=== PATIENT | female | born 1995 | race Caucasian/White ===

== ENCOUNTER 2022-01-18 07:31 | Outpatient (REF) | payer BC, SELFPAY ==
[2022-01-18 12:26] LABS: HBS Num1 1.95 mIU/mL (0-7.99); HBsAGNum1 0.33 S/CO (0.00-0.99); HIV AB/AG Nonreactive (Nonreactive); HIV Num 1 0.07 S/CO (0.00-0.99); Hepatitis B Core Antibody Nonreactive (Nonreactive); Hepatitis B Surface Antigen Negative (Negative); ~Hepatitis B Surface Antibody NONREACTIVE (Nonreactive); ~Hepatitis C Antibody Nonreactive (Nonreactive)
[2022-01-18 12:32] LABS: Syphilis Screen Nonreactive (Nonreactive)
[2022-01-18 13:03] LABS: TSH reflex Free T4 3.47 uIU/mL (0.32-4.0)
[2022-01-18 13:19] LABS: Alanine Aminotransferase 12 U/L (0-31); Albumin Level 4.1 g/dL (3.5-5.0); Alkaline Phosphatase 70 U/L (39-117); Anion Gap 11 (12-20); Aspartate Amino Transferase 15 U/L (5-31); Bilirubin Total 1.1 mg/dL (0.0-1.0); Blood Urea Nitrogen 11 mg/dL (9-16); Calcium 9.1 mg/dL (8.4-10.2); Carbon Dioxide 23 mmol/L (22-29); Chloride 107 mmol/L (96-108); Cholesterol 138 mg/dL; Estimated Glomerular Filt Rate > 60; Free T4 (Free Thyroxine) 1.08 ng/dL (0.71-1.85); Glucose Fasting 93 mg/dL (60-99); HDL Cholesterol 46 mg/dL; LDL Cholesterol Calculated 76 mg/dl; Potassium 3.9 mmol/L (3.3-5.1); Sodium 137 mmol/L (135-145); Thyroid Stimulating Hormone 3.33 uIU/mL (0.32-4.0); Total Protein 6.6 g/dL (6.5-8.0); Triglycerides 84 mg/dL
[2022-01-20 00:22] LABS: Triiodothyronine T3 Total 84 ng/dL (76-181)
== END 2022-01-18 07:32 | disposition home or self-care (01) ==
LOC: HO.WFDLDS 07:31
PROVIDERS: Visit Provider Family Medicine
DX: Z00.00 Encounter for general adult medical examination without abnormal findings (principal); E03.9 Hypothyroidism, unspecified; Z11.3 Encounter for screening for infections with a predominantly sexual mode of transmission
CPT/HCPCS: 36415; 80053; 80061; 84439; 84443; 84480; 86704; 86706; 86780; 86803; 87340; 87389

== ENCOUNTER → 2022-02-16 14:39 | Outpatient (BNVA) | payer BC, SELFPAY | PROVIDERS: PCP Family Medicine; Visit Provider Advanced Practice Midwife | DX: Z30.09 Encounter for other general counseling and advice on contraception (principal) ==

== ENCOUNTER → 2022-03-18 08:13 | Outpatient (BNVA) | payer BC, SELFPAY | PROVIDERS: PCP Family Medicine; Visit Provider Advanced Practice Midwife | DX: Z30.46 Encounter for surveillance of implantable subdermal contraceptive (principal) | CPT/HCPCS: 58300; 58301; 81025; J7307 ==

== ENCOUNTER 2022-06-07 10:48 | Outpatient (REF) | payer BC, SELFPAY ==
[2022-06-07 12:29] LABS: Free T4 (Free Thyroxine) 1.16 ng/dL (0.71-1.85); Thyroid Stimulating Hormone 0.87 uIU/mL (0.32-4.0)
[2022-06-09 01:23] LABS: Thyroid Peroxidase Antibodies 67 IU/mL (<9)
== END 2022-06-07 10:49 | disposition home or self-care (01) ==
LOC: HO.LAB 10:48
PROVIDERS: PCP Family Medicine; Visit Provider Internal Medicine Endocrinology, Diabetes & Metabolism
DX: E03.9 Hypothyroidism, unspecified (principal)
CPT/HCPCS: 36415; 84439; 84443; 84481; 86376

== ENCOUNTER → 2022-06-08 15:20 | Outpatient (BNVA) | payer BC, SELFPAY | PROVIDERS: PCP Family Medicine; Visit Provider Internal Medicine Endocrinology, Diabetes & Metabolism | DX: Z13.89 Encounter for screening for other disorder (principal) ==

== ENCOUNTER 2022-09-01 15:19 | Outpatient (AMB) | payer BC, SELFPAY ==
--- NOTE | 2022-09-01 15:37 | A.OFFPC_ITS ---
Vital Signs 09/01/22 15:38 Height 5 ft 4 in Weight 193 lb BMI 33.1 BP 114/70 Blood Pressure Location Lt brachial Position Sitting Pulse 74 Pulse Source Pulse Oximeter Pulse Oximetry (%) 99 Oxygen Delivery Method Room Air Intake Visit Reasons: f/u weight management Intake Note: Patient is here to discuss weight management. Allergies amoxicillin Allergy (Severe, Verified 09/01/22 15:41) Rash Medication List - Last Reconciled 09/01/22 by Rohan Roberto MD etonogestrel (Nexplanon) subdermal liothyronine 5 mcg PO DAILY 30 days semaglutide (Ozempic) 0.5 mg (0.4 mL) subcut QWEEK Synthroid (levothyroxine) 137 mcg PO DAILY NS Tobacco use date assessed: 09/01/22 Dental Screening Dental Screen Date: 09/01/22 Did you have a dental visit in the last 12 months?: Yes Did you have a dental problem in the last 6 months where you did not have access to dental care?: No Was dental information given to patient?: No HPI f/u weight management HPI Details 27 y/o female presents to f/u weight management. She is currently taking 0.5mg Ozempic for weight management. She denies any issues with this. She continues struggling with weight and has been exercising/dieting. [facility] Medical History Hypothyroid Surgical History No history of previous surgery Family History Father Hypertension Mother Hypertension Irregular heart beat Paternal Grandmother Lung cancer Stroke Paternal Grandfather Cancer Paternal Uncle Heart attack Social History Household Members: Significant Other Household Members Other:: fiance Housing: Apartment Alcohol intake: current Alcohol intake frequency: other Patient Tobacco Use Status: Never used Tobacco e-Cigarette/Vaping Use: Never Used Second Hand Smoke Exposure: No service: No Current occupational status: employed 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 1. Little interest or pleasure in doing things: not at all 2. Feeling down, depressed, or hopeless: not at all 3. Trouble falling or staying asleep, or sleeping too much: not at all 4. Feeling tired or having little energy: not at all 5. Poor appetite or overeating: not at all 6. Feeling bad about yourself - or that you are a failure or have let yourself or your family down: not at all 7. Trouble concentrating on things, such as reading the newspaper or watching television: not at all 8. Moving or speaking so slowly that other people could have noticed. Or the opposite - being so fidgety or restless that you have been moving around a lot more than usual: not at all 9. Thoughts that you would be better off or of hurting yourself in some way: not at all Total score: 0 Source: Developed by Drs. Sohail Alejandro, Arlet Larkin, Aakash Nunes and colleagues, with an educational lolita from [employer]. Thrive Questionnaire I am a: Patient What is your living situation today?: I have a steady place to live Within the past 12 months, did the food you bought not last and you didn't have the money to get more?: Never true Within the past 12 months, did you worry whether your food would run out before you got money to buy more?: Never true Do you have trouble paying for medicines?: No Do you have trouble getting transportation to medical appointments?: No Do you have trouble paying your heating and electricity bill?: No Do you have trouble taking care of your child, family member or friend?: No Do you have trouble with day-to-day activities such as bathing, preparing meals, shopping, managing finances, etc.?: No Are you currently unemployed and looking for a job?: No Are you interested in more education?: No AUDIT C Alcohol Use Questionnaire (AUDIT-C) 1. How often do you have a drink containing alcohol?: 2-3 times a week 2. How many drinks containing alcohol do you have on a typical day when you are drinking?: 1 or 2 3. How often do you have six or more drinks on one occasion?: Never Total Score: 3 JOSE-7 AMB Questionnaire JOSE-7 Date JOSE - 7 assessed: 11/06/21 Feeling nervous, anxious, or on edge: 0 = Not at all Not being able to stop or control worryin = Not at all Worrying too much about different things: 0 = Not at all Trouble relaxin = Not at all Being so restless that it is hard to sit still: 0 = Not at all Becoming easily annoyed or irritable: 0 = Not at all Feeling afraid as if something awful might happen: 0 = Not at all Total JOSE-7 score (0-4 normal; 5-9 mild; 10-14 moderate; 15-21 severe): 0 Source: Developed by Drs. Sohail Alejandro, Arlet Larkin, Aakash Nunes and colleagues, with an educational lolita from [employer]. Review of Systems Const Denies chills, Denies fatigue, Denies fever(s), Denies headache(s) and Denies weakness ENT Denies dizziness and Denies headache(s) Card Denies dyspnea Resp Denies cough, Denies dyspnea, Denies wheezing and Denies other (shortness of breath) Musc Denies numbness and Denies tingling Neuro Denies dizziness, Denies headache(s), Denies numbness, Denies tingling and Denies weakness Psych Denies anxiety and Denies depression Endo Denies fatigue Aller/Immun Denies wheezing Physical exam (Primary Care) Vital Signs: Last Vital Signs Pulse 74 09/01/22 15:38 BP 114/70 09/01/22 15:38 Pulse Ox 99 09/01/22 15:38 Oxygen Delivery Method Room Air 09/01/22 15:38 BMI result Body Mass Index 33.1 Tobacco/Smoking Status: Tobacco use Status Tobacco use date assessed 09/01/22 09/01/22 15:47 Patient Tobacco Use Status Never used Tobacco 09/01/22 15:37 e-Cigarette/Vaping Use Never Used 09/01/22 15:37 PHQ-9: PHQ-9 Score PHQ-9: Total score 0 09/01/22 16:04 Const General: well developed; No acute distress Nutritional Appearance: obese Orientation/consciousness: patient oriented x3 HENMT Head: Yes normocephalic and Yes atraumatic Eyes General: appearance normal, both eyes and all related structures Pupils: Equal, round and reactive pupils present EOM: EOMs intact bilaterally Resp Effort & Inspection: normal respiratory effort Auscultation: clear to auscultation bilaterally Cardio Rate: regular rate Rhythm: regular rhythm Heart sounds: S1 normal heart sound present, S2 normal heart sound present, no gallops, no murmurs and no rubs Neuro General: patient oriented x3 and gait normal Cranial nerves: Yes Equal, round and reactive pupils present Psych Affect: normal affect Assessment and Plan Assessment & Plan (1) Obesity (BMI 30.0-34.9): Code(s): E66.9 - Obesity, unspecified Plan: Patient has ongoing difficulty losing weight. Has tried multiple diets and exercises regularly. Has been using semaglutide but more recently has not had any weight loss; she would like to try increasing this. She has had no adverse effects from this medication. Will increase med and follow-up in 2 months. She will let me know if she has have any problems with this increase. Also, she is followed by endocrinology for hypothyroidism and most recently was found to be euthyroid. Lastly, offered bariatric options and patient would like to see how she does with the increase in medication prior to considering this. Medications: Changed From semaglutide (Ozempic) 0.5 mg (0.4 mL) subcut QWEEK 1.5 mL 1RF To semaglutide 1 mg (0.75 mL) subcut QWEEK 28 days 3 mL 1RF Coding Level of Care Code Est Pt Level 3 (78120) Diagnoses Obesity (BMI 30.0-34.9) E66.9
[2022-09-01 15:38] VITALS: BP 114/70; PULSE 74; O2SAT 99; BMI 33.1
== END 2022-09-01 16:19 | disposition home or self-care (01) ==
PROVIDERS: PCP Family Medicine; Visit Provider Family Medicine
DX: E66.9 Obesity, unspecified (principal); Z68.33 Body mass index [BMI] 33.0-33.9, adult
CPT/HCPCS: 99213

== ENCOUNTER 2022-12-15 09:01 | Outpatient (AMB) | payer BC, SELFPAY ==
[2022-12-15 09:08] VITALS: BP 132/78; PULSE 84; RESP 12; TEMP 36.9; O2SAT 98; BMI 34.2
--- NOTE | 2022-12-15 09:08 | A.OFFPC_ITS ---
Vital Signs 12/15/22 09:08 Height 5 ft 4 in Weight 199 lb 2 oz BMI 34.2 BP 132/78 Blood Pressure Location Lt brachial Position Sitting Respiration 12 Pulse 84 Pulse Source Pulse Oximeter Temp 98.4 F Temp Source Oral Pulse Oximetry (%) 98 Oxygen Delivery Method Room Air Intake Visit Reasons: Urgent Care F/U 12/06/22-Shingles Intake Note: Patient is here for follow up from 12/06/22, she had shingles, she still has rash, itching, burning, and fatigue. Allergies amoxicillin Allergy (Severe, Verified 12/15/22 09:34) Rash Medication List - Last Reconciled 12/15/22 by Guzman Gage CNP etonogestrel (Nexplanon) subdermal liothyronine 5 mcg PO DAILY 30 days semaglutide 1 mg (0.75 mL) subcut QWEEK 28 days Synthroid (levothyroxine) 137 mcg PO DAILY NS Tobacco use date assessed: 12/15/22 HPI HPI Comments History of Present Illness Details 27-year-old female presents for shingles follow-up. She was treated for shingles at an urgent care on 12/06/2022. She was prescribed acyclovir TID x 7 days. She notes that she completed the course of antiviral treatment 4 days ago. However, the rash is still present on right side of her back, ribcage, and abdomen, and it itching and burning. She reports associated fatigue. [facility] Medical History (Updated 12/15/22 @ 10:01 by Guzman Gage CNP) Shingles Hypothyroid Surgical History No history of previous surgery Family History Father Hypertension Mother Hypertension Irregular heart beat Paternal Grandmother Lung cancer Stroke Paternal Grandfather Cancer Paternal Uncle Heart attack Social History Household Members: Significant Other Household Members Other:: fiance Housing: House Alcohol intake: current Alcohol intake frequency: other Patient Tobacco Use Status: Never used Tobacco e-Cigarette/Vaping Use: Never Used Second Hand Smoke Exposure: No service: No Current occupational status: employed 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 Sohail Alejandro, Arlet Larkin, Aakash Nunes and colleagues, with an educational lolita from [employer]. Review of Systems Const Details: Const Denies chills, Reports fatigue, Denies fever(s), Denies headache(s) and Denies weakness ENT Denies dizziness and Denies headache(s) Card Denies chest pain, Denies lightheadedness, Denies dyspnea and Denies other (Palpitations) Resp Denies cough, Denies dyspnea, Denies wheezing and Denies other ( shortness of breath) GI Denies abdominal pain, Denies melena, Denies hematochezia, Denies change in bowel habits, Denies dyspepsia and Denies nausea Denies hematuria and Denies dysuria Musc Denies abnormal gait, Denies myalgias, Denies arthralgias, Denies numbness and Denies tingling Skin/Breast As per HPI Neuro Denies abnormal gait, Denies dizziness, Denies headache(s), Denies memory loss, Denies numbness, Denies Sensory deficit (Neuro), Denies tingling and Denies weakness Psych Denies anxiety, Denies depression, Denies memory loss Endo Denies cold intolerance, Reports fatigue, Denies heat intolerance, Denies polydipsia and Denies polyuria Aller/Immun Denies wheezing Physical exam (Primary Care) Vital Signs: Last Vital Signs Temp 98.4 F 12/15/22 09:08 Pulse 84 12/15/22 09:08 Resp 12 12/15/22 09:08 BP 132/78 12/15/22 09:08 Pulse Ox 98 12/15/22 09:08 Oxygen Delivery Method Room Air 12/15/22 09:08 BMI result Body Mass Index 34.2 Tobacco/Smoking Status: Tobacco use Status Tobacco use date assessed 12/15/22 12/15/22 09:12 Patient Tobacco Use Status Never used Tobacco 12/15/22 09:12 e-Cigarette/Vaping Use Never Used 12/15/22 09:12 Const Other: General: no acute distress and well developed Nutritional Appearance: well nourished Orientation/consciousness: patient oriented x3 [facility] Head: Yes normocephalic and Yes atraumatic Eyes General: appearance normal, both eyes and all related structures Pupils: Equal, round and reactive pupils present EOM: EOMs intact bilaterally Resp Effort & Inspection: normal respiratory effort Auscultation: clear to auscultation bilaterally Cardio Rate: regular rate Rhythm: regular rhythm Heart sounds: S1 normal heart sound present, S2 normal heart sound present, no gallops, no murmurs and no rubs GI Palpation (GI): No Abdominal aortic bruit present, Soft to palpation, nontender, No hepatosplenomegaly present and No Rebound tenderness present Auscultation: normal bowel sounds General: Yes no CVA tenderness Back/Spine/Pelvis Back: no CVA tenderness Cervical Spine: cervical ROM normal and No Cervical spine tenderness Thoracic/Lumbar Spine: thoraco-lumbar ROM normal, No pain with thoraco-lumbar ROM, No thoracic spinal tenderness and No lumbar spinal tenderness Extrem General: Yes normal to inspection, No edema and No calf tenderness Skin General: warm and dry. Normal skin color. Normal skin turgor Rashes: Red, raised, clustered, crusted rash noted to the right side of her back, ribcage, and abdomen. No vesicles noted Trauma: no lacerations or abrasions Wounds: no wounds Nails: normal Neuro General: patient oriented x3, gait normal and no focal neuro deficit Cranial nerves: Yes Equal, round and reactive pupils present Cognition (Neuro): normal cognition Gait exam (Neuro): Normal gait present Sensory Exam: No Sensory deficit (Neuro) Psych Appearance: grossly normal Affect: normal affect Attitude: cooperative Thought process: Normal thought process present Assessment and Plan Assessment & Plan (1) Shingles: Code(s): B02.9 - Zoster without complications Qualifiers: Herpes zoster complications: without complications Qualified Code(s): B02.9 - Zoster without complications Plan: She reports rash on right side of her back, ribcage, and abdomen, and it itching and burning. She reports associated fatigue. She was diagnosed with herpes zoster on 12/06/2022 and was prescribed valacyclovir which she took as prescribed until completed Red, raised, clustered, crusted rash noted to the right side of her back, ribcage, and abdomen. No vesicles noted. Consistent with herpes zoster Gabapentin ordered. Take as prescribed May take ibuprofen 600-800 mg every 6-8 hours as needed for pain or discomfort Will check CBC, TSH, and vitamin-D level for cause of fatigue Follow-up with worsening or new signs and symptoms Verbalized understanding and agreed with treatment plan. (2) Fatigue: Code(s): R53.83 - Other fatigue Qualifiers: Encounter type: initial encounter Plan: As above Orders: Orders Complete Blood Count Auto Diff Today R53.83 - Other fatigue TSH reflex Free T4 Today R53.83 - Other fatigue Comprehensive [place]. Panel Fast Today R53.83 - Other fatigue Vitamin D 25-OH Total Today R53.83 - Other fatigue Medications: New gabapentin 300 mg PO BID 7 days 14 caps 0RF Coding Level of Care Code Est Pt Level 3 (09009) Diagnoses Herpes zoster without complication B02.9 Herpes zoster complications: without complications Fatigue R53.83 Encounter type: initial encounter
== END 2022-12-15 09:51 | disposition home or self-care (01) ==
PROVIDERS: PCP Family Medicine; Visit Provider Nurse Practitioner Family
DX: B02.9 Zoster without complications (principal); R53.83 Other fatigue
CPT/HCPCS: 99213

== ENCOUNTER 2022-12-15 09:52 | Outpatient (REF) | payer BC, SELFPAY ==
[2022-12-15 11:53] LABS: MANUAL DIFF FLAG NO
[2022-12-15 12:08] LABS: Basophils Absolute Auto 0.1 X10*3/uL (0.0-0.2); Basophils Percent Auto 0.5 % (0-2); Eosinophils Absolute Auto 0.4 X10*3/uL (0.0-0.4); Hematocrit 41.9 % (37.0-47.0); Hemoglobin 14.6 g/dl (12.0-16.0); Imm Gran Abs Auto 0.03 X10*3/uL (0.00-0.03); Imm Gran Pct Auto 0.3 % (0.0-0.4); Lymphocytes Absolute Auto 2.7 X10*3/uL (1.2-4.9); Lymphocytes Percent Auto 29.5 % (20-40); Mean Corpuscular HGB Conc 34.8 g/dl (31.0-35.0); Mean Corpuscular Hemoglobin 29.8 pg (27.0-33.0); Mean Corpuscular Volume 85.5 fL (80.0-98.0); Mean Platelet Volume 9.5 fL (9.4-12.3); Monocytes Absolute Auto 0.7 X10*3/uL (0.1-1.2); Monocytes Percent Auto 7.2 % (2-11); Neutrophils Absolute Auto 5.4 x10*3/uL (2.0-8.3); Neutrophils Percent Auto 58.5 % (45-73); Platelet Count 286 X10*3/uL (160-400); Red Cell Distribution Width 12.3 % (11.0-16.0); White Blood Count 9.2 X10*3/uL (4.8-10.8)
[2022-12-15 12:46] LABS: Alanine Aminotransferase 16 U/L (0-31); Albumin Level 4.5 g/dL (3.5-5.0); Alkaline Phosphatase 67 U/L (39-117); Anion Gap 11 (12-20); Aspartate Amino Transferase 19 U/L (5-31); Blood Urea Nitrogen 11 mg/dL (9-16); Carbon Dioxide 25 mmol/L (22-29); Chloride 106 mmol/L (96-108); Estimated Glomerular Filt Rate > 60; Glucose Fasting 81 mg/dL (60-99); Sodium 138 mmol/L (135-145); Total Protein 7.6 g/dL (6.5-8.0)
[2022-12-15 12:48] LABS: TSH reflex Free T4 1.76 uIU/mL (0.32-4.0); Vitamin D 25-OH Total 35.9 ng/mL (>30)
== END 2022-12-15 09:53 | disposition home or self-care (01) ==
LOC: HO.WFDLDS 09:52
PROVIDERS: Visit Provider Nurse Practitioner Family
DX: R53.83 Other fatigue (principal)
CPT/HCPCS: 36415; 80053; 82306; 84443; 85025

== ENCOUNTER 2023-06-06 09:46 | Outpatient (REF) | payer BC, SELFPAY ==
[2023-06-06 12:07] LABS: Free T4 (Free Thyroxine) 1.05 ng/dL (0.71-1.85)
[2023-06-07 07:29] LABS: Triiodothyronine T3 Free 3.1 pg/mL (2.3-4.2)
== END 2023-06-06 09:47 | disposition home or self-care (01) ==
LOC: HO.LAB 09:46
PROVIDERS: PCP Family Medicine; Visit Provider Internal Medicine Endocrinology, Diabetes & Metabolism
DX: E03.9 Hypothyroidism, unspecified (principal)
CPT/HCPCS: 36415; 84439; 84443; 84481

== ENCOUNTER 2023-06-07 10:15 | Outpatient (REF) | payer BC, SELFPAY | END 2023-06-07 10:16 | disposition home or self-care (01) | LOC: HO.LNP 10:15 | PROVIDERS: PCP Family Medicine; Visit Provider Internal Medicine Endocrinology, Diabetes & Metabolism | DX: Z01.419 Encounter for gynecological examination (general) (routine) without abnormal findings (principal) | CPT/HCPCS: 88142 ==

== ENCOUNTER 2023-06-07 10:15 | Outpatient (AMB) | payer BC, SELFPAY ==
[2023-06-07 10:22] VITALS: BP 100/72; PULSE 76; BMI 36.1
--- NOTE | 2023-06-07 10:22 | A.OFFVIS_ITS ---
Intake Vital Signs 06/07/23 10:22 Height 5 ft 4 in Weight 210 lb 1.608 oz BMI 36.1 BP 100/72 Blood Pressure Location Lt brachial Position Sitting Pulse 76 Pulse Source Pulse Oximeter Intake Visit Reasons: f/u hypothyroidism Intake Note: Patient present today for Hypothyroidism follow up visit. Chemist Internship Required: No Accompanied by: Self / Same As Patient Allergies amoxicillin Allergy (Severe, Verified 06/07/23 10:30) Rash HPI HPI Comments History of Present Illness Details 28 YO F with who is seen in consultation at the request of his PCP for Hyothyroidism. First diagnosed with Hypothyroidism 14- 15 yrs ago . saw Endo in [facility] Currently using levothyroxine 137 ug and liothyronine 5 mcg . Denies +fatigue, -weight gain,- cold intolerance, -dry skin, -hair loss, - constipation. There is no hx of hyperlipidemia . Denies obstructive sx of goiter . Denies consuming any kelp or seaweed. Denies taking amiodarone. Denies current or desiring to become in near future.Not completating Menses: IUD Biotin: NO Kelp or seaweed supplements; Family hx of thyroid disease No Correct administration of meds away from food and other meds Y Labs: No plans for [facility] Medical History (Updated 12/15/22 @ 10:01 by Guzman Gage CNP) Shingles Hypothyroid Surgical History No history of previous surgery Family History Father Hypertension Mother Hypertension Irregular heart beat Paternal Grandmother Lung cancer Stroke Paternal Grandfather Cancer Paternal Uncle Heart attack Social History Household Members: Significant Other Household Members Other:: fiance Housing: House Alcohol intake: current Alcohol intake frequency: other Patient Tobacco Use Status: Never used Tobacco e-Cigarette/Vaping Use: Never Used Second Hand Smoke Exposure: No service: No Current occupational status: employed 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 Thyroid gland measure 15 gms . No nodules or tenderness palpated. There is no cervical adenopathy palpated. Lungs CTA. Heart S1, S2 Reg R/R -M/R/G. Abdominal exam benign. Skin exam reveals absence of dryness or thyroid dermopathy or vitiligo. Nail exam reveals absence of thyroid acropachy or oncholysis. Neurologic exam reveals 2+ reflexes . Muscle Strength is 5/5 proximally. There are no tremors in upper extremities. Assessment & Plan Assessment & Plan (1) Hypothyroidism: Code(s): E03.9 - Hypothyroidism, unspecified Plan: This is a 28-year-old white female with a history of hypothyroidism currently replaced on 137 mcg levothyroxine and 5 mcg of Cytomel. She appears to be clinically and biochemically euthyroid Plan is to continue the current regimen. Orders: Orders Free T4 (Free Thyroxine) 6 Months E03.9 - Hypothyroidism, unspecified Thyroid Stimulating Hormone 6 Months E03.9 - Hypothyroidism, unspecified Coding Level of Care Code Est Pt Level 3 (89553) Diagnoses Hypothyroidism E03.9
== END 2023-06-07 10:42 | disposition home or self-care (01) ==
PROVIDERS: PCP Family Medicine; Visit Provider Internal Medicine Endocrinology, Diabetes & Metabolism
DX: E03.9 Hypothyroidism, unspecified (principal)
CPT/HCPCS: 99213

== ENCOUNTER 2023-06-07 10:50 | Outpatient (AMB) | payer BC, SELFPAY ==
--- NOTE | 2023-06-07 10:55 | MHC.OFFVIS ---
Intake Vital Signs 06/07/23 10:56 Height 5 ft 4 in Weight 209 lb BMI 35.9 BP 106/66 Intake Visit Reasons: Annual/ DO NOT RESCHEDULE Retail Marketing Specialist: Retail Marketing Specialist Present (Vesta) Allergies amoxicillin Allergy (Severe, Verified 06/07/23 10:56) Rash HPI HPI Comments History of Present Illness Details She is a premenopausal woman presenting for annual examination. Doing well with no concerns. She tries to eat healthy and stays active with exercise, has difficulty losing weight and took Ozempic in the past until insurance was no longer coverage. Currently has some breakthrough bleeding with the Nexplanon not heavy or to prolonged at this time. Currently is sexually active w/. She denies vaginal itching and irritation. STI screening offered; she declines. Denies family history of breast, ovarian or colon cancer. Last pap smear 2020, negative. [facility] Medical History Shingles Hypothyroid Surgical History No history of previous surgery Family History Father Hypertension Mother Hypertension Irregular heart beat Paternal Grandmother Lung cancer Stroke Paternal Grandfather Cancer Paternal Uncle Heart attack Social History (Updated 06/07/23 @ 11:27 by Katerina Barber CNM) Household Members: Significant Other Household Members Other:: fiance Housing: House Alcohol intake: current Alcohol intake frequency: other Patient Tobacco Use Status: Never used Tobacco e-Cigarette/Vaping Use: Never Used Second Hand Smoke Exposure: No service: No Current occupational status: employed 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, 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 Current occupational exposures/hazards: No Cognitive needs: No Hearing needs: No Vision needs: No Female Reproductive History Menstrual Age of Menarche: 10 control method: implanted (Nexplanon 03/18/2022) Total pregnancies: 0 Review of Systems Const All systems reviewed & are unremarkable except as noted in HPI and below Reports as per HPI Eyes Reports no additional complaints ENT Reports no additional complaints Card Reports no additional complaints Resp Reports no additional complaints GI Reports as per HPI and Reports no additional complaints Reports as per HPI Musc Reports no additional complaints Skin/Breast Reports as per HPI Neuro Reports no additional complaints Psych Reports no additional complaints Endo Reports no additional complaints Aaron/Lymph Reports no additional complaints Aller/Immun Reports no additional complaints Physical Exam Vital Signs: Last Vital Signs BP 106/66 06/07/23 10:56 BMI result Body Mass Index 35.9 Const General: cooperative, healthy appearing, no acute distress, well developed and alert Orientation/consciousness: patient oriented x3 HEENT Head: Yes normal to inspection Eyes General: appearance normal, both eyes and all related structures Neck Neck: Yes normal visual inspection Thyroid: Thyroid normal Chest Chest palpation & inspection: normal inspection of the chest and other (no puckering, dimpling, peau de orange, retraction, discharge, masses) Breast/axilla inspection: normal inspection of the breasts Breast/axilla palpation: normal palpation of the breasts Resp Effort & Inspection: normal respiratory effort GI Inspection: Yes normal to inspection Palpation (GI): Soft to palpation Rectal Exam - Female: deferred General: Yes bladder normal to palpation External Female Exam: normal external appearance and normal appearance of the urethra Speculum Exam - Vagina: normal appearance of the vagina, normal palpation and normal vaginal discharge Speculum Exam - Cervix: normal appearance of the cervix, normal palpation and Other cervical findings present (Bled slightly with Pap) Bimanual exam- vagina & uterus: normal bimanual exam, normal palpation, uterine size normal, bladder normal to palpation, normal palpation and non-tender Bimanual Exam- Adnexa, other: no masses Skin General skin exam: no rashes or lesions noted Rashes: no rashes Neuro General: patient oriented x3 Cognition (Neuro): normal cognition Extrem General: Yes normal to inspection Psych Attitude: cooperative Thought process: Normal thought process present Assessment & Plan Assessment & Plan (1) Encounter for well woman exam with routine gynecological exam: Code(s): Z01.419 - Encounter for gynecological examination (general) (routine) without abnormal findings Plan Discussed: Current recommendations for pap smears per ASCCP guidelines. Pap obtained today. Breast awareness and periodic breast exams. Maintain a healthy lifestyle including a well balanced diet and routine exercise. Observe bleeding pattern and report any heavy prolonged cycles for options of care. Patient verbalizes understanding and agrees to the plan of care. She was given opportunity to ask questions and all questions were answered to the best of my ability. RTO in one year for annual route delivery clerk examination. This note is constructed using voice recognition software. While every effort has been made to ensure accuracy, water treatment plant operator errors may have been included. Coding Level of Care Code Est Pt Prev Care 18-39y(65690) Diagnoses Encounter for well woman exam with routine gynecological exam Z01.419
[2023-06-07 10:56] VITALS: BP 106/66; BMI 35.9
== END 2023-06-07 11:32 | disposition home or self-care (01) ==
PROVIDERS: PCP Family Medicine; Visit Provider Advanced Practice Midwife
DX: Z01.419 Encounter for gynecological examination (general) (routine) without abnormal findings (principal)
CPT/HCPCS: 99395

== ENCOUNTER 2023-08-26 07:59 | Outpatient (AMB) | payer BC, SELFPAY ==
--- NOTE | 2023-08-26 08:08 | MHC.PC.OV ---
Vital Signs 08/26/23 08:12 Height 5 ft 4 in Weight 210 lb 8 oz BMI 36.1 BP 98/62 Blood Pressure Location Rt brachial Position Sitting Respiration 12 Pulse 69 Pulse Source Pulse Oximeter Temp 98.2 F Temp Source Oral Pulse Oximetry (%) 97 Oxygen Delivery Method Room Air Intake Visit Reasons: Annual Intake Note: Physical Is last menstrual period known: No (Started on 08/22/2023) Allergies amoxicillin Allergy (Severe, Verified 08/26/23 08:16) Rash Medication List - Last Reconciled 08/26/23 by Guzman Gage CNP etonogestrel (Nexplanon) subdermal liothyronine 5 mcg PO DAILY 30 days Synthroid (levothyroxine) 137 mcg PO DAILY NS Tobacco use date assessed: 08/26/23 Dental Screening Dental Screen Date: 08/26/23 Did you have a dental visit in the last 12 months?: Yes Did you have a dental problem in the last 6 months where you did not have access to dental care?: No Was dental information given to patient?: Patient has dentist HPI HPI Comments History of Present Illness Details 28-year-old female presents for an extended physical exam She is a patient of Dr. Roberto. Her last office visit was on 09/01/2022 She has past medical history significant for hypothyroidism and obesity She is currently on levothyroxine 137 mcg, liothyronine 5 mcg, and nexplanon. She admits to taking her medications as prescribed without adverse reactions She admits to making healthy dietary choices and sleeping well. She started physical exercise recently She stop taking Ozempic after her health plan stopped covering the medication. She is willing to be referred to a dietitian She offers no complaints and denies acute symptoms at this time Last Pap smear was on 05/2023: negative result COUNT INCLUDES THE [facility] Medical History Shingles Hypothyroid Surgical History No history of previous surgery Family History Father Hypertension Mother Hypertension Irregular heart beat Paternal Grandmother Lung cancer Stroke Paternal Grandfather Cancer Paternal Uncle Heart attack Social History (Updated 06/07/23 @ 11:27 by Katerina Barber CNM) Household Members: Significant Other Household Members Other:: fiance Housing: House Alcohol intake: current Alcohol intake frequency: other Patient Tobacco Use Status: Never used Tobacco e-Cigarette/Vaping Use: Never Used Second Hand Smoke Exposure: No service: No Current occupational status: employed 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 1. Little interest or pleasure in doing things: not at all 2. Feeling down, depressed, or hopeless: not at all 3. Trouble falling or staying asleep, or sleeping too much: not at all 4. Feeling tired or having little energy: not at all 5. Poor appetite or overeating: not at all 6. Feeling bad about yourself - or that you are a failure or have let yourself or your family down: not at all 7. Trouble concentrating on things, such as reading the newspaper or watching television: several days 8. Moving or speaking so slowly that other people could have noticed. Or the opposite - being so fidgety or restless that you have been moving around a lot more than usual: not at all 9. Thoughts that you would be better off or of hurting yourself in some way: not at all Total score: 1 Depression Screening Interpretation: Negative Depression Screening Done: Yes 25306 - PHQ-9 Billing: Yes Source: Developed by Drs. Sohail Alejandro, Arlet Larkin, Aakash Nunes and colleagues, with an educational lolita from [employer]. Thrive Questionnaire Date Thrive assessed: 08/26/23 I am a: Patient What is your living situation today?: I have a steady place to live Within the past 12 months, did the food you bought not last and you didn't have the money to get more?: Never true Within the past 12 months, did you worry whether your food would run out before you got money to buy more?: Never true Do you have trouble paying for medicines?: No Do you have trouble getting transportation to medical appointments?: No Do you have trouble paying your heating and electricity bill?: No Do you have trouble taking care of your child, family member or friend?: No Do you have trouble with day-to-day activities such as bathing, preparing meals, shopping, managing finances, etc.?: No Are you currently unemployed and looking for a job?: No Are you interested in more education?: No Please select the resources that you would like help with: None Currently or been in a relationship where the following occur: No concerns reported THRIVE Score: 0 AUDIT C Alcohol Use Questionnaire (AUDIT-C) 1. How often do you have a drink containing alcohol?: 2-4 times a month 2. How many drinks containing alcohol do you have on a typical day when you are drinking?: 3 or 4 3. How often do you have six or more drinks on one occasion?: Less than monthly Total Score: 4 JOSE-7 AMB Questionnaire JOSE-7 Date JOSE - 7 assessed: 11/06/21 Feeling nervous, anxious, or on edge: 2 = More than half the days Not being able to stop or control worryin = Not at all Worrying too much about different things: 1 = Several days Trouble relaxin = Not at all Being so restless that it is hard to sit still: 0 = Not at all Becoming easily annoyed or irritable: 2 = More than half the days Feeling afraid as if something awful might happen: 0 = Not at all Total JOSE-7 score (0-4 normal; 5-9 mild; 10-14 moderate; 15-21 severe): 5 Source: Developed by Drs. Sohail Alejandro, Arlet Larkin, Aakash Nunes and colleagues, with an educational lolita from [employer]. JOSE-7 Assessment Billing JOSE-7 Assessment Tool: JOSE-7 Assessment 29829 Review of Systems Const Details: Denies chills, Denies fatigue, Denies fever(s), Denies headache(s) and Denies weakness HEENT Denies change in vision, Denies dizziness, Denies headache(s), Denies hearing loss, Denies nasal congestion, Denies sinus pain, Denies sinus pressure and Denies sore throat Card Denies chest pain, Denies lightheadedness, Denies dyspnea and Denies other (palpitations) Resp Denies cough, Denies dyspnea and Denies wheezing GI Denies abdominal pain, Denies melena, Denies hematochezia, Denies change in bowel habits, Denies dyspepsia and Denies nausea Denies hematuria and Denies dysuria Musc Denies abnormal gait, Denies myalgias, Denies arthralgias, Denies numbness and Denies tingling Skin/Breast Denies rash, Denies unusual bruising and Denies wounds Neuro Denies abnormal gait, Denies dizziness, Denies headache(s), Denies memory loss, Denies numbness, Denies Sensory deficit (Neuro), Denies tingling and Denies weakness Psych Denies anxiety, Denies depression and Denies memory loss Endo Denies cold intolerance, Denies fatigue, Denies heat intolerance, Denies polydipsia and Denies polyuria Aaron/Lymph Denies easy bleeding and Denies easy bruising Aller/Immun Denies wheezing Physical exam (Primary Care) Tobacco/Smoking Status: Tobacco use Status Tobacco use date assessed 12/15/22 12/15/22 09:12 Patient Tobacco Use Status Never used Tobacco 06/07/23 11:27 e-Cigarette/Vaping Use Never Used 06/07/23 11:27 Depression Screening Interpretation: Negative Currently or been in a relationship where the following occur: No concerns reported Const Other: General: no acute distress, well developed, alert and awake Nutritional Appearance: well nourished Orientation/consciousness: patient oriented x3 HENMT Head: Yes normocephalic and Yes atraumatic Ears: hearing grossly normal bilaterally and TM's normal bilaterally General nose exam: Normal external nose present and Normal nares present Mouth: Normal oral and palatal mucosa present and moist mucous membranes Teeth and gingiva: dentition normal Throat: Yes oropharynx normal Eyes Pupils: Equal, round and reactive pupils present and Pupil accommodation reflex normal EOM: EOMs intact bilaterally Neck Neck: Yes normal visual inspection, Yes no lymphadenopathy and Yes trachea midline Thyroid: Thyroid normal Carotids: no bruits Lymphatic: no lymphadenopathy noted Chest Chest palpation & inspection: normal inspection of the chest Resp Effort & Inspection: normal respiratory effort Auscultation: clear to auscultation bilaterally Cardio Rate: regular rate Rhythm: regular rhythm Heart sounds: S1 normal heart sound present, S2 normal heart sound present, no gallops, no murmurs and no rubs Bruits: no abdominal aortic bruits and no carotid bruits GI Palpation (GI): No Abdominal aortic bruit present, Soft to palpation, nontender, No hepatosplenomegaly present and No Rebound tenderness present Auscultation: normal bowel sounds General: Yes no CVA tenderness Back/Spine/Pelvis Back: no CVA tenderness Cervical Spine: cervical ROM normal and No Cervical spine tenderness Thoracic/Lumbar Spine: thoraco-lumbar ROM normal, No pain with thoraco-lumbar ROM, No thoracic spinal tenderness and No lumbar spinal tenderness Skin General: warm and dry. Normal skin color. Normal skin turgor Lesions: no lesions Rashes: no rashes Trauma: no lacerations or abrasions Wounds: no wounds Nails: normal Neuro General: patient oriented x3, gait normal and CN's II-XI intact bilaterally Cranial nerves: Yes Equal, round and reactive pupils present Cognition (Neuro): normal cognition Gait exam (Neuro): Normal gait present Motor exam (neuro): 5/5 motor strength present throughout Sensory Exam: No Sensory deficit (Neuro) Deep tendon reflexes (DTR's): Right patellar reflex intensity grade: 2+ and Left patellar reflex intensity grade: 2+ Extrem General: Yes normal to inspection, No edema and No calf tenderness Psych Appearance: grossly normal Affect: normal affect Attitude: cooperative Thought process: Normal thought process present Assessment and Plan Assessment & Plan (1) Normal physical examination, routine: Code(s): Z00.00 - Encounter for general adult medical examination without abnormal findings Plan: No significant physical restrictions or limitations noted Continue current treatment regimen Healthy diet and routine exercise encouraged Follow-up with endocrinology as planned Advised to get fasting lab work done. Will review results and make changes as needed Follow-up with PCP in a year from today for an extended physical exam or sooner with symptoms or concerns Verbalized understanding and agreed with treatment plan (2) Obesity (BMI 30-39.9): Code(s): E66.9 - Obesity, unspecified Plan: She currently weighs 210 lb, BMI is 36.1 Healthy diet and routine exercise encouraged [place] [facility] [place] Follow-up with symptoms or concerns Verbalized understanding and agreed with the plan (3) Hypothyroidism: Code(s): E03.9 - Hypothyroidism, unspecified Plan: Recent TSH, free T3/T4 were normal Continue current treatment regimen Follow-up with endocrinology as planned (4) Laboratory exam ordered as part of routine general medical examination: Code(s): Z00.00 - Encounter for general adult medical examination without abnormal findings Plan: Fasting labs ordered as part of a complete physical exam. Advised to fast for at least 10 hours before getting labs drawn. May drink water Verbalized understanding and agreed with treatment plan. Orders: Orders Lipid Panel Today Z00.00 - Encounter for general adult medical examination without abnormal findings UA CC w/rflx Micro + Cult Today Z00.00 - Encounter for general adult medical examination without abnormal findings Referrals Nutrition/Dietitian Referral E66.9 - Obesity, unspecified Coding Level of Care Code Est Pt Prev Care 18-39y([id number]) Diagnoses Normal physical examination, routine Z00.00 Obesity (BMI 30-39.9) E66.9 Hypothyroidism E03.9 Laboratory exam ordered as part of routine general medical examination Z00.00 Additional Codes JOSE-7 Assessment Billing - JOSE-7 Assessment Tool: JOSE-7 Assessment [id number] ([id number])
[2023-08-26 08:12] VITALS: BP 98/62; PULSE 69; RESP 12; TEMP 36.8; O2SAT 97; BMI 36.1
== END 2023-08-26 08:29 | disposition home or self-care (01) ==
PROVIDERS: PCP Family Medicine; Visit Provider Nurse Practitioner Family
DX: Z00.00 Encounter for general adult medical examination without abnormal findings (principal); E66.9 Obesity, unspecified; E03.9 Hypothyroidism, unspecified; Z68.36 Body mass index [BMI] 36.0-36.9, adult
CPT/HCPCS: 99395

== ENCOUNTER 2023-08-26 08:32 | Outpatient (REF) | payer BC, SELFPAY ==
[2023-08-26 11:30] LABS: Appearance Urine Clear; Color Urine Yellow; Glucose Urine UA Negative (Negative); Leukocyte Esterase Urine Negative (Negative); Nitrite Urine Negative (Negative); PH 6.5 (5.0-9.0); Specific Gravity - Urine 1.015 (1.005-1.025); UMIC TRIGGER UACC YES; Urine Blood Trace (Negative); Urine Ketones Negative (Negative); Urine Protein Negative (Neg-Trace)
[2023-08-26 11:35] LABS: Bacteria Urine None Seen (None Seen); Hyaline Casts Urine 0-2 /LPF (0-2); RBC Urine 0-2 /HPF (0-2); Squamous Epithelial Cell Urine 0-2 /HPF (0-2); WBC Urine 0-5 /HPF (0-5)
[2023-08-26 11:41] LABS: Cholesterol 154 mg/dL (<200); HDL Cholesterol 46 mg/dL (>40); LDL Cholesterol Calculated 95 mg/dL (<100); Triglycerides 68 mg/dL (<150)
== END 2023-08-26 08:33 | disposition home or self-care (01) ==
LOC: HO.WFDLDS 08:32
PROVIDERS: Visit Provider Nurse Practitioner Family
DX: Z00.00 Encounter for general adult medical examination without abnormal findings (principal)
CPT/HCPCS: 36415; 80061; 81001

== ENCOUNTER 2023-12-07 15:46 | Outpatient (AMB) | payer BC, SELFPAY ==
[2023-12-07 15:47] VITALS: BP 110/72; PULSE 87; BMI 36.1
--- NOTE | 2023-12-07 15:47 | A.OFFVIS_ITS ---
Vital Signs 12/07/23 15:47 Height 5 ft 4 in Weight 210 lb 1.608 oz BMI 36.1 BP 110/72 Blood Pressure Location Lt brachial Position Sitting Pulse 87 Pulse Source Pulse Oximeter Intake Visit Reasons: f/u hypothyroidism-conf Intake Note: Patient present today for Hypothyroidism follow up visit. Rn Dermatology Required: No Accompanied by: Self / Same As Patient Allergies amoxicillin Allergy (Severe, Verified 12/07/23 15:50) Rash Medication List - Last Reconciled 12/07/23 by Sohail Cooper MD etonogestrel (Nexplanon) subdermal liothyronine 5 mcg PO DAILY 30 days Synthroid (levothyroxine) 137 mcg PO DAILY NS HPI Comments Details: 28 YO F with who is seen in consultation at the request of his PCP for Hyothyroidism. First diagnosed with Hypothyroidism 14- 15 yrs ago . saw Endo in [facility] Currently using levothyroxine 137 ug and liothyronine 5 mcg . Denies +fatigue, -weight gain,- cold intolerance, -dry skin, -hair loss, - constipation. There is no hx of hyperlipidemia . Denies obstructive sx of goiter . Denies consuming any kelp or seaweed. Denies taking amiodarone. Denies current or desiring to become in near future.Not completating Menses: IUD Biotin: NO Kelp or seaweed supplements; Family hx of thyroid disease No Correct administration of meds away from food and other meds Y Labs: No plans for PFSH Medical History Shingles Hypothyroid Surgical History No history of previous surgery Family History Father Hypertension Mother Hypertension Irregular heart beat Paternal Grandmother Lung cancer Stroke Paternal Grandfather Cancer Paternal Uncle Heart attack Social History (Updated 06/07/23 @ 11:27 by Katerina Barber CNM) Household Members: Significant Other Household Members Other:: fiance Housing: House Alcohol intake: current Alcohol intake frequency: other Patient Tobacco Use Status: Never used Tobacco e-Cigarette/Vaping Use: Never Used Second Hand Smoke Exposure: No service: No Current occupational status: employed 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 Thyroid gland measure 15 gms . No nodules or tenderness palpated. There is no cervical adenopathy palpated. Lungs CTA. Heart S1, S2 Reg R/R -M/R/G. Abdominal exam benign. Skin exam reveals absence of dryness or thyroid dermopathy or vitiligo. Nail exam reveals absence of thyroid acropachy or oncholysis. Neurologic exam reveals 2+ reflexes . Muscle Strength is 5/5 proximally. There are no tremors in upper extremities. Assessment & Plan Assessment & Plan (1) Hypothyroidism: Code(s): E03.9 - Hypothyroidism, unspecified Category: Medical Plan: This is a 28-year-old white female with a history of hypothyroidism currently replaced on 137 mcg levothyroxine and 5 mcg of Cytomel. She appears to be clinically euthyroid Plan is to check TSH, free T4 and free T3 and adjust regimen accordingly. Patient was Once again not to get on a T3 and to stop the T3 prior to planning Coding Level of Care Code Est Pt Level 3 (07768) Diagnoses Hypothyroidism E03.9
== END 2023-12-07 15:59 | disposition home or self-care (01) ==
PROVIDERS: PCP Family Medicine; Visit Provider Internal Medicine Endocrinology, Diabetes & Metabolism
DX: E03.9 Hypothyroidism, unspecified (principal)
CPT/HCPCS: 99213

== ENCOUNTER → 2023-12-07 15:46 | Outpatient (BNVA) | payer BC, SELFPAY | PROVIDERS: PCP Family Medicine; Visit Provider Internal Medicine Endocrinology, Diabetes & Metabolism ==

== ENCOUNTER 2023-12-09 08:05 | Outpatient (REF) | payer BC, SELFPAY ==
[2023-12-09 12:57] LABS: Free T4 (Free Thyroxine) 1.21 ng/dL (0.71-1.85)
== END 2023-12-09 08:06 | disposition home or self-care (01) ==
LOC: HO.WFDLDS 08:05
PROVIDERS: Visit Provider Internal Medicine Endocrinology, Diabetes & Metabolism
DX: E03.9 Hypothyroidism, unspecified (principal)
CPT/HCPCS: 36415; 84439; 84443

== ENCOUNTER 2024-02-14 08:19 | Outpatient (AMB) | payer BC, SELFPAY ==
--- NOTE | 2024-02-14 08:49 | A.OFFPC_ITS ---
Vital Signs 02/14/24 08:51 Height 5 ft 4 in Weight 211 lb 8 oz BMI 36.3 BP 120/70 Blood Pressure Location Rt brachial Position Sitting Respiration 16 Pulse 84 Pulse Source Pulse Oximeter Temp 98.1 F Temp Source Oral Pulse Oximetry (%) 97 Oxygen Delivery Method Room Air Intake Visit Reasons: Difficulty?concentrating Intake Note: Difficulty?concentrating?and?pt would like to talk about adhd medication options and symptoms she has been having to rule out adhd or anxiety Allergies amoxicillin Allergy (Severe, Verified 02/14/24 08:50) Rash Tobacco use date assessed: 08/26/23 Dental Screening Dental Screen Date: 08/26/23 HPI Difficulty?concentrating HPI Details Patient?says?that?she?has?been?experiencing?worsening?difficulty?concentrating?a t?work?and?at?home.??Difficulty?staying?on?task. He?notes?mild?anxiety?but?is?not?sure?who?her?anx iety?is?causing?difficulty?with?concentrating?would?you?of?way?around. She?notes?that?she?had?an?IEP?as?a?child?but?was?never?diagnosed?with?ADD/ADHD?t brenna?she?is?wondering?if?this?is?the?underlying?cause. 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 1. Little interest or pleasure in doing things: not at all 2. Feeling down, depressed, or hopeless: not at all 3. Trouble falling or staying asleep, or sleeping too much: several days 4. Feeling tired or having little energy: several days 5. Poor appetite or overeating: not at all 6. Feeling bad about yourself - or that you are a failure or have let yourself or your family down: not at all 7. Trouble concentrating on things, such as reading the newspaper or watching t elevision: several days 8. Moving or speaking so slowly that other people could have noticed. Or the opposite - being so fidgety or restless that you have been moving around a lot more than usual: not at all 9. Thoughts that you would be better off or of hurting yourself in some way: not at all Total score: 3 Source: Developed by Drs. Sohail Alejandro, Arlet Larkin, Aakash Nunes and colleagues, with an educational lolita from [employer]. Thrive Questionnaire Date Thrive assessed: 02/14/24 I am a: Patient What is your living situation today?: I have a steady place to live Within the past 12 months, did the food you bought not last and you didn't have the money to get more?: Never true Within the past 12 months, did you worry whether your food would run out before you got money to buy more?: Never true Do you have trouble paying for medicines?: No Do you have trouble getting transportation to medical appointments?: No Do you have trouble paying your heating and electricity bill?: No Do you have trouble taking care of your child, family member or friend?: No Do you have trouble with day-to-day activities such as bathing, preparing meals, shopping, managing finances, etc.?: No Are you currently unemployed and looking for a job?: No Are you interested in more education?: No Please select the resources that you would like help with: None Currently or been in a relationship where the following occur: No concerns reported THRIVE Score: 0 AUDIT C Alcohol Use Questionnaire (AUDIT-C) 1. How often do you have a drink containing alcohol?: 2-4 times a month 2. How many drinks containing alcohol do you have on a typical day when you are drinking?: 1 or 2 3. How often do you have six or more drinks on one occasion?: Never Total Score: 2 JOSE-7 AMB Questionnaire JOSE-7 Date JOSE - 7 assessed: 02/14/24 Feeling nervous, anxious, or on edge: 1 = Several days Not being able to stop or control worryin = Several days Worrying too much about different things: 1 = Several days Trouble relaxin = Not at all Being so restless that it is hard to sit still: 0 = Not at all Becoming easily annoyed or irritable: 0 = Not at all Feeling afraid as if something awful might happen: 0 = Not at all Total JOSE-7 score (0-4 normal; 5-9 mild; 10-14 moderate; 15-21 severe): 3 Source: Developed by Drs. Sohail Alejandro, Arlet Larkin, Aakash Nunes and colleagues, with an educational lolita from [employer]. Review of Systems Const Denies chills, Denies fatigue, Denies fever(s), Denies headache(s) and Denies weakness ENT Denies dizziness and Denies headache(s) Card Denies chest pain, Denies lightheadedness, Denies dyspnea and Denies other (Palpitations) Resp Denies cough, Denies dyspnea, Denies wheezing and Denies other ( shortness of breath) Musc Denies numbness and Denies tingling Neuro Denies dizziness, Denies headache(s), Denies numbness, Denies tingling, Denies paresthesias and Denies weakness Psych Details: Difficulty?concentrating Reports anxiety (mild anxiety) and Denies depression Endo Denies fatigue Aller/Immun Denies wheezing Physical exam (Primary Care) Vital Signs: Last Vital Signs Temp 98.1 F 02/14/24 08:51 Pulse 84 02/14/24 08:51 Resp 16 02/14/24 08:51 BP 120/70 02/14/24 08:51 Pulse Ox 97 02/14/24 08:51 Oxygen Delivery Method Room Air 02/14/24 08:51 BMI result Body Mass Index 36.3 Tobacco/Smoking Status: Tobacco use Status Tobacco use date assessed 08/26/23 02/14/24 08:57 Patient Tobacco Use Status Never used Tobacco 02/14/24 08:57 e-Cigarette/Vaping Use Never Used 02/14/24 08:57 PHQ-9: PHQ-9 Score PHQ-9: Total score 3 02/14/24 08:57 Thrive Assessment: Date of Thrive Assessment Date Thrive assessed 02/14/24 02/14/24 08:57 Currently or been in a relationship where the following occur: No concerns reported Const General: no acute distress and well developed Nutritional Appearance: well nourished Orientation/consciousness: patient oriented x3 HENMT Head: Yes normocephalic and Yes atraumatic Eyes General: appearance normal, both eyes and all related structures Pupils: Equal, round and reactive pupils present EOM: EOMs intact bilaterally Resp Effort & Inspection: normal respiratory effort Auscultation: clear to auscultation bilaterally Cardio Rate: regular rate Rhythm: regular rhythm Heart sounds: S1 normal heart sound present, S2 normal heart sound present, no gallops, no murmurs and no rubs Neuro General: patient oriented x3 and gait normal Cranial nerves: Yes Equal, round and reactive pupils present Psych Affect: normal affect Coding Level of Care Code Est Pt Level 3 (33054) Diagnoses Difficulty concentrating R41.840 Assessment & Plan Assessment & Plan (1) Difficulty concentrating: Code(s): R41.840 - Attention and concentration deficit Category: Medical Plan: Difficulty?concentrating?and?focusing?on?her?work. Patient?says?she?had?an?IEP?as?a?student?but?no?prior?diagnosis?of?ADD/ADHD Will?refer?her?for testing Meantime,?will?trial?bupropion Orders: Orders Lipid Panel Today Z00.00 - Encounter for general adult medical examination without abnormal findings Free T4 (Free Thyroxine) Today E03.9 - Hypothyroidism, unspecified Thyroid Stimulating Hormone Today E03.9 - Hypothyroidism, unspecified Comprehensive [place]. Panel Fast Today Z00.00 - Encounter for general adult medical examination without abnormal findings Complete Blood Count Auto Diff Today Z00.00 - Encounter for general adult medical examination without abnormal findings Microalbumin, Random (w Creat) Today I10 - Essential (primary) hypertension UA and rflx microscopic Today Z00.00 - Encounter for general adult medical examination without abnormal findings Triiodothyronine T3 Total Today E03.9 - Hypothyroidism, unspecified Medications: New bupropion HCl 75 mg PO BID 30 days 60 tabs 1RF
[2024-02-14 08:51] VITALS: BP 120/70; PULSE 84; RESP 16; TEMP 36.7; O2SAT 97; BMI 36.3
== END 2024-02-14 09:11 | disposition home or self-care (01) ==
PROVIDERS: PCP Family Medicine; Visit Provider Family Medicine
DX: R41.840 Attention and concentration deficit (principal)

== ENCOUNTER 2024-02-14 09:32 | Outpatient (REF) | payer BC, SELFPAY ==
[2024-02-14 11:13] LABS: MANUAL DIFF FLAG NO
[2024-02-14 11:38] LABS: Basophils Absolute Auto 0.1 X10*3/uL (0.0-0.2); Basophils Percent Auto 0.7 % (0-2); Eosinophils Absolute Auto 0.3 X10*3/uL (0.0-0.4); Eosinophils Percent Auto 3.8 % (0-4); Hemoglobin 14.5 g/dl (12.0-16.0); Imm Gran Abs Auto 0.02 X10*3/uL (0.00-0.03); Imm Gran Pct Auto 0.3 % (0.0-0.4); Lymphocytes Absolute Auto 2.1 X10*3/uL (1.2-4.9); Lymphocytes Percent Auto 27.7 % (20-40); Mean Corpuscular HGB Conc 34.5 g/dl (31.0-35.0); Mean Corpuscular Hemoglobin 29.4 pg (27.0-33.0); Mean Platelet Volume 9.7 fL (9.4-12.3); Monocytes Absolute Auto 0.6 X10*3/uL (0.1-1.2); Monocytes Percent Auto 7.8 % (2-11); Neutrophils Absolute Auto 4.6 x10*3/uL (2.0-8.3); Neutrophils Percent Auto 59.7 % (45-73); Platelet Count 321 X10*3/uL (160-400); Red Blood Count 4.94 X10*6/uL (4.20-5.50); Red Cell Distribution Width 12.5 % (11.0-16.0); White Blood Count 7.7 X10*3/uL (4.8-10.8)
[2024-02-14 12:06] LABS: Alanine Aminotransferase 26 U/L (0-31); Albumin Level 4.4 g/dL (3.5-5.0); Alkaline Phosphatase 68 U/L (39-117); Anion Gap 12 (12-20); Aspartate Amino Transferase 31 U/L (5-31); Bilirubin Total 0.9 mg/dL (0.0-1.0); Blood Urea Nitrogen 12 mg/dL (9-16); Calcium 9.5 mg/dL (8.4-10.2); Carbon Dioxide 26 mmol/L (22-29); Chloride 107 mmol/L (96-108); Cholesterol 151 mg/dL (<200); Estimated Glomerular Filt Rate > 60; Glucose Fasting 93 mg/dL (60-99); HDL Cholesterol 43 mg/dL (>40); LDL Cholesterol Calculated 93 mg/dL (<100); Potassium 3.9 mmol/L (3.3-5.1); Sodium 141 mmol/L (135-145); Total Protein 7.3 g/dL (6.5-8.0); Triglycerides 75 mg/dL (<150)
[2024-02-14 12:55] LABS: Free T4 (Free Thyroxine) 1.26 ng/dL (0.71-1.85); Thyroid Stimulating Hormone 1.86 uIU/mL (0.32-4.0)
[2024-02-15 11:04] LABS: Triiodothyronine T3 Total 117 ng/dL (76-181)
== END 2024-02-14 09:33 | disposition home or self-care (01) ==
LOC: HO.WFDLDS 09:32
PROVIDERS: Visit Provider Family Medicine
DX: Z00.00 Encounter for general adult medical examination without abnormal findings (principal); E03.9 Hypothyroidism, unspecified
CPT/HCPCS: 36415; 80053; 80061; 84439; 84443; 84480; 85025

== ENCOUNTER 2024-03-20 15:33 | Outpatient (AMB) | payer BC, SELFPAY ==
--- NOTE | 2024-03-20 15:59 | MHC.PC.OV ---
Vital Signs 03/20/24 16:03 Height 5 ft 4 in Weight 212 lb 6 oz BMI 36.5 BP 110/60 Blood Pressure Location Rt brachial Position Sitting Respiration 16 Pulse 81 Pulse Source Pulse Oximeter Temp 98.8 F Temp Source Oral Pulse Oximetry (%) 98 Oxygen Delivery Method Room Air Intake Visit Reasons: f/u on meds Intake Note: bupropion f/u pt states she felt the difference in the begining of taking medication and now she is going back to how she felt before medication initiation. Allergies amoxicillin Allergy (Severe, Verified 03/20/24 16:01) Rash Medication List - Last Reconciled 03/20/24 by Rohan Roberto MD bupropion HCl 100 mg PO BID 30 days etonogestrel (Nexplanon) subdermal liothyronine 5 mcg PO DAILY 30 days Synthroid (levothyroxine) 137 mcg PO DAILY NS Tobacco use date assessed: 08/26/23 Dental Screening Dental Screen Date: 08/26/23 HPI f/u on meds HPI Details 29 y/o female presents to f/u difficulty concentrating. Had started her on buproprion and referred her for evaluation for ADD/ADHD. Notes buproprion had initially helped with focus but does not feel much at her current dose now. She notes she has been sleeping well. HPI Comments History of Present Illness Details Documentation assistance for Rohan Roberto MD, was provided by Gene Fink,? Planning Associate on 03/20/2024 at 4:16 PM EST. I, Dr. Roberto, have read, observed, and verified documentation. ?? 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, 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 Current occupational exposures/hazards: No Cognitive needs: No Hearing needs: No Vision needs: No Female Reproductive History Menstrual Age of Menarche: 10 Questionnaire Thrive Questionnaire Date Thrive assessed: 02/14/24 I am a: Patient What is your living situation today?: I have a steady place to live Within the past 12 months, did the food you bought not last and you didn't have the money to get more?: Never true Within the past 12 months, did you worry whether your food would run out before you got money to buy more?: Never true Do you have trouble paying for medicines?: No Do you have trouble getting transportation to medical appointments?: No Do you have trouble paying your heating and electricity bill?: No Do you have trouble taking care of your child, family member or friend?: No Do you have trouble with day-to-day activities such as bathing, preparing meals, shopping, managing finances, etc.?: No Are you currently unemployed and looking for a job?: No Are you interested in more education?: No Please select the resources that you would like help with: None Currently or been in a relationship where the following occur: No concerns reported THRIVE Score: 0 AUDIT C Alcohol Use Questionnaire (AUDIT-C) 1. How often do you have a drink containing alcohol?: 2-4 times a month 2. How many drinks containing alcohol do you have on a typical day when you are drinking?: 1 or 2 3. How often do you have six or more drinks on one occasion?: Never Total Score: 2 JOSE-7 AMB Questionnaire JOSE-7 Date JOSE - 7 assessed: 02/14/24 Feeling nervous, anxious, or on edge: 1 = Several days Not being able to stop or control worryin = Not at all Worrying too much about different things: 1 = Several days Trouble relaxin = Several days Being so restless that it is hard to sit still: 1 = Several days Becoming easily annoyed or irritable: 1 = Several days Feeling afraid as if something awful might happen: 0 = Not at all Total JOSE-7 score (0-4 normal; 5-9 mild; 10-14 moderate; 15-21 severe): 5 Source: Developed by Drs. Sohail Alejandro, Arlet Larkin, Aakash Nunes and colleagues, with an educational lolita from [employer]. Review of Systems Const Denies chills, Denies fatigue, Denies fever(s), Denies headache(s) and Denies weakness ENT Denies dizziness and Denies headache(s) Card Denies chest pain, Denies lightheadedness, Denies dyspnea and Denies other (Palpitations) Resp Denies cough, Denies dyspnea, Denies wheezing and Denies other ( shortness of breath) Musc Denies numbness and Denies tingling Neuro Denies dizziness, Denies headache(s), Denies numbness, Denies tingling, Denies paresthesias and Denies weakness Psych Denies anxiety and Denies depression Endo Denies fatigue Aller/Immun Denies wheezing Physical exam (Primary Care) Vital Signs: Last Vital Signs Temp 98.8 F 03/20/24 16:03 Pulse 81 03/20/24 16:03 Resp 16 03/20/24 16:03 BP 110/60 03/20/24 16:03 Pulse Ox 98 03/20/24 16:03 Oxygen Delivery Method Room Air 03/20/24 16:03 BMI result Body Mass Index 36.5 Tobacco/Smoking Status: Tobacco use Status Tobacco use date assessed 08/26/23 03/20/24 16:05 Patient Tobacco Use Status Never used Tobacco 03/20/24 16:05 e-Cigarette/Vaping Use Never Used 03/20/24 16:05 Thrive Assessment: Date of Thrive Assessment Date Thrive assessed 02/14/24 03/20/24 16:05 Currently or been in a relationship where the following occur: No concerns reported Const General: no acute distress and well developed Nutritional Appearance: well nourished Orientation/consciousness: patient oriented x3 HENMT Head: Yes normocephalic and Yes atraumatic Eyes General: appearance normal, both eyes and all related structures Pupils: Equal, round and reactive pupils present EOM: EOMs intact bilaterally Resp Effort & Inspection: normal respiratory effort Auscultation: clear to auscultation bilaterally Cardio Rate: regular rate Rhythm: regular rhythm Heart sounds: S1 normal heart sound present, S2 normal heart sound present, no gallops, no murmurs and no rubs Neuro General: patient oriented x3 and gait normal Cranial nerves: Yes Equal, round and reactive pupils present Psych Affect: normal affect Coding Level of Care Code Est Pt Level 3 (14386) Diagnoses Difficulty concentrating R41.840 Family planning Z30.09 Assessment & Plan Assessment & Plan (1) Difficulty concentrating: Code(s): R41.840 - Attention and concentration deficit Category: Medical Plan: Patient?notes?that?bupropion?75?mg?b.i.d.?initially?helped?quite?a?bit?with?focus She?feels?that?it?has?not?been?helping?as?well?lately. Will?try?increasing?this?to?100?mg?b.i.d. She?was?also?referred?to?[facility]?patient?psychiatric?consult?team?and?has?not?heard?back?from?them?yet.??I?will?ask?the?office?to?check?on?the?status?of?this?referral. (2) Family planning: Code(s): Z30.09 - Encounter for other general counseling and advice on contraception Category: Social Hx Plan: Patient?notes?that?an?future?she?is?hoping?to?get?. We?discussed?that?if?she?is?trying?to?get??she?would?want?to?discontinue?this?medication?and?she?understands. Medications: Changed From bupropion HCl 75 mg PO BID 30 days 60 tabs 1RF To bupropion HCl 100 mg PO BID 30 days 60 tabs 1RF
[2024-03-20 16:03] VITALS: BP 110/60; PULSE 81; RESP 16; TEMP 37.1; O2SAT 98; BMI 36.5
== END 2024-03-20 16:24 | disposition home or self-care (01) ==
PROVIDERS: PCP Family Medicine; Visit Provider Family Medicine
DX: R41.840 Attention and concentration deficit (principal); Z30.09 Encounter for other general counseling and advice on contraception

== ENCOUNTER 2024-03-27 15:20 | Outpatient (AMB) | payer BC, SELFPAY ==
--- NOTE | 2024-03-27 15:29 | MHC.PC.OV ---
Vital Signs 03/27/24 15:37 Height 5 ft 4 in Weight 214 lb BMI 36.7 BP 110/80 Blood Pressure Location Lt brachial Position Sitting Respiration 16 Pulse 94 Pulse Source Pulse Oximeter Temp 98.3 F Temp Source Oral Pulse Oximetry (%) 98 Oxygen Delivery Method Room Air Intake Visit Reasons: Sore throat Intake Note: Sore throat, cough, and right ear pain. Started on Tuesday. Covid test negative yesterday. Allergies amoxicillin Allergy (Severe, Verified 03/27/24 15:32) Rash cephalexin Allergy (Intermediate, Verified 03/27/24 15:33) Rash Tobacco use date assessed: 03/27/24 Dental Screening Dental Screen Date: 08/26/23 [facility] Medical History Shingles Hypothyroid Surgical History No history of previous surgery Family History Father Hypertension Mother Hypertension Irregular heart beat Paternal Grandmother Lung cancer Stroke Paternal Grandfather Cancer Paternal Uncle Heart attack Social History Household Members: Significant Other Household Members Other:: fiance Housing: House Alcohol intake: current Alcohol intake frequency: other Patient Tobacco Use Status: Never used Tobacco e-Cigarette/Vaping Use: Never Used Second Hand Smoke Exposure: No service: No Current occupational status: employed 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, 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 Current occupational exposures/hazards: No Cognitive needs: No Hearing needs: No Vision needs: No Female Reproductive History Menstrual Age of Menarche: 10 Questionnaire Thrive Questionnaire Date Thrive assessed: 03/20/24 I am a: Patient What is your living situation today?: I have a steady place to live Within the past 12 months, did the food you bought not last and you didn't have the money to get more?: Never true Within the past 12 months, did you worry whether your food would run out before you got money to buy more?: Never true Do you have trouble paying for medicines?: No Do you have trouble getting transportation to medical appointments?: No Do you have trouble paying your heating and electricity bill?: No Do you have trouble taking care of your child, family member or friend?: No Do you have trouble with day-to-day activities such as bathing, preparing meals, shopping, managing finances, etc.?: No Are you currently unemployed and looking for a job?: No Are you interested in more education?: No Please select the resources that you would like help with: None Currently or been in a relationship where the following occur: No concerns reported THRIVE Score: 0 JOSE-7 AMB Questionnaire JOSE-7 Date JOSE - 7 assessed: 02/14/24 Source: Developed by Drs. Sohail Alejandro, Arlet Larkin, Aakash Nunes and colleagues, with an educational lolita from [employer]. Physical exam (Primary Care) Vital Signs: Last Vital Signs Temp 98.3 F 03/27/24 15:37 Pulse 94 03/27/24 15:37 Resp 16 03/27/24 15:37 BP 110/80 03/27/24 15:37 Pulse Ox 98 03/27/24 15:37 Oxygen Delivery Method Room Air 03/27/24 15:37 BMI result Body Mass Index 36.7 Tobacco/Smoking Status: Tobacco use Status Tobacco use date assessed 03/27/24 03/27/24 15:34 Patient Tobacco Use Status Never used Tobacco 03/27/24 15:31 e-Cigarette/Vaping Use Never Used 03/27/24 15:31 Thrive Assessment: Date of Thrive Assessment Date Thrive assessed 03/20/24 03/27/24 15:31 Currently or been in a relationship where the following occur: No concerns reported Results AMB Rapid Strep AMB Rapid Strep Negative Last Edit by Iza Davis CMA on 03/27/24 17:02 Coding Assessment & Plan Assessment & Plan Orders: Orders AMB Rapid Strep Screen Today J02.9 - Acute pharyngitis, unspecified Medications: New doxycycline hyclate 100 mg PO BID 20 tabs 3RF prednisone Take 2 tab oral 12 hours preflight as needed for sinus congestion 40 mg (2 x 20 mg) PO ONCE PRN 8 tabs 0RF sinus congestion
[2024-03-27 15:37] VITALS: BP 110/80; PULSE 94; RESP 16; TEMP 36.8; O2SAT 98; BMI 36.7
== END 2024-03-27 17:00 | disposition home or self-care (01) ==
PROVIDERS: PCP Family Medicine; Visit Provider Internal Medicine
DX: J02.9 Acute pharyngitis, unspecified (principal)

== ENCOUNTER → 2024-03-27 15:20 | Outpatient (BNVA) | payer BC, SELFPAY | PROVIDERS: PCP Family Medicine; Visit Provider Internal Medicine | DX: J01.00 Acute maxillary sinusitis, unspecified (principal); J02.9 Acute pharyngitis, unspecified | CPT/HCPCS: 87880 ==

== ENCOUNTER 2024-04-23 14:02 | Outpatient (AMB) | payer BC, SELFPAY ==
--- NOTE | 2024-04-23 13:59 | A.OFFPC_ITS ---
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 She is on bupropion 100mg b.i.d. She notes neuropsych still has not reached out to her. She states she feels improvement on bupropion but does note ongoing difficulty concentrating. HPI Comments History of Present Illness Details Documentation assistance for Rohan Roberto MD, was provided by Gene Fink,? Motion Graphics Designer on 04/23/2024 at 3:23 PM EST. I, Dr. Roberto, have read, observed, and verified documentation. ?? [facility] Medical History Shingles Hypothyroid Surgical History No history of previous surgery Family History Father Hypertension Mother Hypertension Irregular heart beat Paternal Grandmother Lung cancer Stroke Paternal Grandfather Cancer Paternal Uncle Heart attack Social History Household Members: Significant Other Household Members Other:: fiance Housing: House Alcohol intake: current Alcohol intake frequency: other Patient Tobacco Use Status: Never used Tobacco e-Cigarette/Vaping Use: Never Used Second Hand Smoke Exposure: No service: No Current occupational status: employed 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 Sohail Alejandro, Arlet Larkin, Aakash Nunes and colleagues, with an educational lolita from [facility]. Review of Systems Const Denies chills, Denies fatigue, Denies fever(s), Denies headache(s) and Denies weakness ENT Denies dizziness and Denies headache(s) Card Denies dyspnea Resp Denies cough, Denies dyspnea, Denies wheezing and Denies other (shortness of breath) Musc Denies numbness and Denies tingling Neuro Denies dizziness, Denies headache(s), Denies numbness, Denies tingling and Denies weakness Psych Denies anxiety and Denies depression Endo Denies fatigue Aller/Immun Denies wheezing Physical exam (Primary Care) Tobacco/Smoking Status: Tobacco use Status Tobacco use date assessed 03/27/24 04/23/24 14:00 Patient Tobacco Use Status Never used Tobacco 04/23/24 14:00 e-Cigarette/Vaping Use Never Used 04/23/24 14:00 Thrive Assessment: Date of Thrive Assessment Date Thrive assessed 03/20/24 04/23/24 14:00 Telehealth Telehealth Telehealth Platform: Telephone Location of provider rendering services: practice address Location of patient: address on file Patient Identification confirmed using: Name, : Yes Telehealth method: voice only Patient verbally consented to treatment: Yes Patient verbally consented to billing insurance company: Yes Patient informed of any privacy concerns related to visit: Yes Minutes spent on Phone/Video with Pt.: 7 Coding Level of Care Code Tele Est Pt Level 2 (71644) Diagnoses Difficulty concentrating R41.840 Assessment & Plan Assessment & Plan (1) Difficulty concentrating: Code(s): R41.840 - Attention and concentration deficit Category: Medical Plan: Focus?is?again?improved?with?the?higher?dose?of?bupropion. However,?patient?notes?that she?is?still?does?not?feel?her?focus?is optimal She?has?been?waiting?for?evaluation?[facility]?psych?team Will?ask?the?office?to?check?on?status?this?referral For?now,?continue?bupropion?100?mg?b.i.d..??No?medication?changes?made?today. Orders: Orders Comprehensive Turner. Panel Fast Today Z00.00 - Encounter for general adult medical examination without abnormal findings Complete Blood Count Auto Diff Today Z00.00 - Encounter for general adult medical examination without abnormal findings Lipid Panel Today Z00.00 - Encounter for general adult medical examination without abnormal findings Microalbumin, Random (w Creat) Today I10 - Essential (primary) hypertension TSH reflex Free T4 Today Z00.00 - Encounter for general adult medical examination without abnormal findings UA and rflx microscopic Today Z00.00 - Encounter for general adult medical examination without abnormal findings
== END 2024-04-23 17:05 | disposition home or self-care (01) ==
LOC: HO.HMCFM 14:02
PROVIDERS: PCP Family Medicine; Visit Provider Family Medicine
DX: R41.840 Attention and concentration deficit (principal)

== ENCOUNTER → 2024-04-23 14:02 | Outpatient (BNVA) | payer BC, SELFPAY | PROVIDERS: PCP Family Medicine; Visit Provider Family Medicine ==

== ENCOUNTER 2024-05-10 09:56 | Outpatient (AMB) | payer BC, SELFPAY ==
--- NOTE | 2024-05-10 09:08 | MHC.OFFVISPS ---
Intake Intake Visit Reasons: consultation Interventional Technologist Required: No Allergies amoxicillin Allergy (Severe, Verified 04/23/24 13:59) Rash cephalexin Allergy (Intermediate, Verified 04/23/24 13:59) Rash Medication List - Last Reconciled 05/10/24 by Samantha Epps APRN bupropion HCl 100 mg PO BID 30 days etonogestrel (Nexplanon) subdermal Synthroid (levothyroxine) 137 mcg PO DAILY NS HPI- Psychiatric Chief Complaint: consultation HPI Narrative: pt referred by PCP for evaluation of attention and concentration problems; pt reports she has always had attention issues; she had an IEP as a child for developmental delay she had speech problems and needed extra time to complete tests/projects. She does not recall if she had a diagnosis ADHD at the time. 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 Although she is functioning she says that she is mentally exhausted from having to work very hard to implement strategies to keep things organized and she often has difficulty with forgetting things that she needs, she can get easily sidetracked she has difficulty retaining information she daydreams she has difficulty with managing time she is often running late and shows up to work 10-15 minutes late. She gives an example that she recently was pulled over on her way to work because she was speeding and when she was pulled over she realized she did not have her wallet her license or her keys for her classroom. She has difficulty starting tasks she has lower frustration tolerance and at times can get irritable with her classroom. She has difficulty at home functioning with cleaning the house getting things done such as grocery shopping paying bills and cleaning she often interrupts others. Her PHQ-9 equals 5 and her G A D 7 equals 4. She completed an adult ADHD self report scale and scored 18 her inattention subscale was 12 in her hyperactivity scale was 6 more inattentive than hyperactive. There is a family history of ADHD both her uncle and her father have ADHD her mother has anxiety no other history mental illness in the family. Patient is getting mild benefit from the Wellbutrin 100 mg b.i.d. however she continues to have significant difficulty functioning and on the medication she scored an 18 on the ADHD self report scale (any score over 13 is strongly indicative ADHD diagnosis) Past Psychiatric History: PCP started her on Wellbutrin no other history psychiatric Treatment Subjective Subjective Subjective Medication Compliance: Yes Side effects from medications: No Review of Systems Medical Review of Systems: unchanged Mental Status Exam Mental Status Exam Patient Appearance: Well Grooomed and Appropriate Level of Consciousness: Awake, Appropriate and Alert Patient Behavior: Appropriate, Talkative and Good Eye Contact Mood Description: Anxious and Sad Affect Description: Anxious and Sad Patient Cognition Impaired: No Ability to Follow Directions: Good Speech Pattern: Clear Memory Description: Intact Hallucinations: None Delusions: Not Present Thought Process: Intact, Distracted and Goal Oriented Thought Content: positive for Intact and positive for Goal Oriented Judgement: Good Judgement and Insight: Patient judgment good insight good Assessment and Plan Assessment & Plan (1) ADHD (attention deficit hyperactivity disorder), inattentive type: Status: Acute Code(s): F90.0 - Attention-deficit hyperactivity disorder, predominantly inattentive type Plan Continue Wellbutrin 100 mg b.i.d. for now as she is getting some benefit Trial Ritalin 10 mg twice a day 4 hours apart. If taking the Ritalin helps her symptoms and has no side effects she will portal message me and I will send in a long-acting methylphenidate or Ritalin product She was instructed if 10 mg has no effect on her symptoms and she has no side effects and she will try 15 mg that is 1-1/2 pills twice a day 4 hours apart She will return in 4 weeks to reassess and consider tapering off Wellbutrin Medications: New methylphenidate HCl (Ritalin) Partial Fill upon patient request. 10 mg PO BID 60 tabs 0RF Counseling and coordination of Care Pt. Self Management counseling: Maintenance-social rhythm, Mod caffeine/ETOH intake, Nutrition education and improvement and Sleep hygiene Medication management counseling: Effectiveness, Side effects, Dosing range, Duration, Drug interaction and Adherence Diagnosis and Prognosis Counseling: Accuracy of diagnosis, Prognosis over time, Impact of diagnosis on life functions, Impact of family relationship, Problematic behaviors secondary to diagnosis and Adequacy of current interventions Details: I spent 70 minutes reviewing the record, seeing the patient and documenting in the medical record. Counseling provided to the patient/caregiver as outlined below. Addressed patient/caregiver concerns regarding current medication regime including effective adherence. Addressed patient/caregiver concerns regarding diagnosis and prognosis including accuracy of diagnosis, prognosis over time, impact of diagnosis. Addressed patient/caregiver concerns regarding impact of recent stressors. [facility] Medical History Shingles Hypothyroid Surgical History No history of previous surgery Family History Father Hypertension Mother Hypertension Irregular heart beat Paternal Grandmother Lung cancer Stroke Paternal Grandfather Cancer Paternal Uncle Heart attack Social History Household Members: Significant Other Household Members Other:: fiance Housing: House Alcohol intake: current Alcohol intake frequency: other Patient Tobacco Use Status: Never used Tobacco e-Cigarette/Vaping Use: Never Used Second Hand Smoke Exposure: No service: No Current occupational status: employed 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 She grew up in [place] live with her mother and father she has 2 half-siblings who are significantly older a brother age 42 and a sister age 40. Patient moved to [place] to attend [employer] Substance History: None Trauma History: None Coding Level of Care Code Psych Diag Eval w/Med (08324) Diagnoses ADHD (attention deficit hyperactivity disorder), inattentive type F90.0
== END 2024-05-10 09:57 | disposition home or self-care (01) ==
LOC: HO.HOP 09:56
PROVIDERS: PCP Family Medicine; Visit Provider Clinical Nurse Specialist Psychiatric/Mental Health
DX: F90.0 Attention-deficit hyperactivity disorder, predominantly inattentive type (principal)
CPT/HCPCS: 90792

== ENCOUNTER → 2024-05-10 09:56 | Outpatient (BNVA) | payer BC, SELFPAY | PROVIDERS: PCP Family Medicine; Visit Provider Clinical Nurse Specialist Psychiatric/Mental Health | DX: F90.0 Attention-deficit hyperactivity disorder, predominantly inattentive type (principal); Z71.89 Other specified counseling | CPT/HCPCS: 90792 ==

== ENCOUNTER 2024-06-05 08:19 | Outpatient (REF) | payer BC, SELFPAY ==
[2024-06-05 11:01] LABS: MANUAL DIFF FLAG NO
[2024-06-05 11:05] LABS: Basophils Percent Auto 0.5 % (0-2); Eosinophils Absolute Auto 0.3 X10*3/uL (0.0-0.4); Eosinophils Percent Auto 3.7 % (0-4); Hematocrit 39.2 % (37.0-47.0); Hemoglobin 13.7 g/dl (12.0-16.0); Imm Gran Abs Auto 0.02 X10*3/uL (0.00-0.03); Imm Gran Pct Auto 0.3 % (0.0-0.4); Lymphocytes Absolute Auto 1.9 X10*3/uL (1.2-4.9); Lymphocytes Percent Auto 26.6 % (20-40); Mean Corpuscular HGB Conc 34.9 g/dl (31.0-35.0); Mean Corpuscular Hemoglobin 29.7 pg (27.0-33.0); Mean Platelet Volume 9.6 fL (9.4-12.3); Monocytes Absolute Auto 0.6 X10*3/uL (0.1-1.2); Monocytes Percent Auto 8.5 % (2-11); Neutrophils Absolute Auto 4.4 x10*3/uL (2.0-8.3); Neutrophils Percent Auto 60.4 % (45-73); Platelet Count 274 X10*3/uL (160-400); Red Blood Count 4.61 X10*6/uL (4.20-5.50); Red Cell Distribution Width 12.6 % (11.0-16.0); White Blood Count 7.3 X10*3/uL (4.8-10.8)
[2024-06-05 11:33] LABS: Appearance Urine Clear; Color Urine Yellow; Glucose Urine UA Negative (Negative); Leukocyte Esterase Urine Negative (Negative); Nitrite Urine Negative (Negative); Specific Gravity - Urine 1.025 (1.005-1.025); Urine Blood Negative (Negative); Urine Ketones Trace mg/dL (Negative); Urine Protein Trace mg/dL (Neg-Trace)
[2024-06-05 11:39] LABS: Alanine Aminotransferase 23 U/L (0-31); Albumin Level 4.3 g/dL (3.5-5.0); Alkaline Phosphatase 59 U/L (39-117); Anion Gap 8 (12-20); Aspartate Amino Transferase 24 U/L (5-31); Bilirubin Total 0.9 mg/dL (0.0-1.0); Blood Urea Nitrogen 12 mg/dL (9-16); Calcium 9.5 mg/dL (8.4-10.2); Carbon Dioxide 25 mmol/L (22-29); Chloride 109 mmol/L (96-108); Cholesterol 139 mg/dL (<200); Estimated Glomerular Filt Rate > 60; Glucose Fasting 90 mg/dL (60-99); HDL Cholesterol 42 mg/dL (>40); LDL Cholesterol Calculated 85 mg/dL (<100); Potassium 3.8 mmol/L (3.3-5.1); Sodium 138 mmol/L (135-145); TSH reflex Free T4 2.24 uIU/mL (0.32-4.0); Total Protein 6.7 g/dL (6.5-8.0); Triglycerides 60 mg/dL (<150)
[2024-06-05 12:03] LABS: Creatinine Urine 269.45 mg/dL; Microalbum/Creatinine Ratio Ur 2.2 ug/mg cr (<30)
== END 2024-06-05 08:20 | disposition home or self-care (01) ==
LOC: HO.WFDLDS 08:19
PROVIDERS: Visit Provider Family Medicine
DX: Z00.00 Encounter for general adult medical examination without abnormal findings (principal); I10 Essential (primary) hypertension
CPT/HCPCS: 36415; 80053; 80061; 81003; 82043; 82570; 84443; 85025

== ENCOUNTER 2024-06-06 08:17 | Outpatient (AMB) | payer BC, SELFPAY ==
[2024-06-06 08:19] VITALS: BP 100/74; PULSE 65; O2SAT 94; BMI 35.1
--- NOTE | 2024-06-06 08:19 | MHC.OFFVIS ---
Vital Signs 06/06/24 08:19 Height 5 ft 4 in Weight 204 lb 5.896 oz BMI 35.1 BP 100/74 Blood Pressure Location Lt brachial Position Sitting Pulse 65 Pulse Source Pulse Oximeter Pulse Oximetry (%) 94 Oxygen Delivery Method Room Air Intake Visit Reasons: f/u hypothyroidism Intake Note: Patient present today for Hypothyroidism follow up. 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 First diagnosed with Hypothyroidism 14- 15 yrs ago . saw Endo in [facility] Currently using Synthroid 137 ug and off liothyronine 5 mcg . Denies +fatigue, -weight gain,- cold intolerance, -dry skin, -hair loss, -constipation. There is no hx of hyperlipidemia . Denies obstructive sx of goiter . Denies consuming any kelp or seaweed. Denies taking amiodarone. Denies current or desiring to become in near future.Not completating Menses: IUD Biotin: NO Kelp or seaweed supplements; Family hx of thyroid disease No Correct administration of meds away from food and other meds Y Labs: No plans for currently The patient is a 29-year-old female presenting with hypothyroidism. Currently, she is on Levothyroxine (Synthroid) at a dosage of 137 mcg and feels well on the medication. Her thyroid function tests have indicated stable and optimal levels. Historically, she used to take T3 supplementation, which was discontinued, as its necessity was reassessed following her recent ADHD diagnosis. The patient associates an improvement in her overall level of fatigue with management of ADHD through non-stated means, suggesting the previous exhaustion was multifactorial. 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 There are no thyroid nodules palpable Assessment & Plan Assessment & Plan (1) Hypothyroidism: Code(s): E03.9 - Hypothyroidism, unspecified Category: Medical Plan: This is a 28-year-old white female with a history of hypothyroidism currently replaced on 137 mcg Synthroid l. She appears to be clinically and biochemically euthyroid Plan is to continue the current regimen 1. Hypothyroidism The patient's thyroid function is well-controlled on Levothyroxine 137 mcg daily. Given her stable condition, follow-up is not urgent unless her situation changes, such as , at which point closer monitoring is advised. - Continue taking Levothyroxine as prescribed. - Schedule follow-up annually unless you become , then seek sooner evaluation. - Monitor for any thyroid-related symptoms and report significant changes. - Consult endocrinology early if occurs for proper management of thyroid levels. The patient had an opportunity to ask questions regarding treatment plan. The patient expressed understanding and agreement with the above treatment plan. d. Patient was informed and verbally consented to the use of an ambient scribe for clinic note documentation during this visit. Coding Level of Care Code Est Pt Level 3 (81463) Diagnoses Hypothyroidism E03.9
== END 2024-06-06 08:32 | disposition home or self-care (01) ==
LOC: HO.ENCR 08:18
PROVIDERS: PCP Family Medicine; Visit Provider Internal Medicine Endocrinology, Diabetes & Metabolism
DX: E03.9 Hypothyroidism, unspecified (principal)
CPT/HCPCS: 99213

== ENCOUNTER 2024-06-12 09:32 | Outpatient (AMB) | payer BC, SELFPAY ==
--- NOTE | 2024-06-12 09:43 | A.OFFPSYCH_ITS ---
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 Required: No Allergies amoxicillin Allergy (Severe, Verified 06/06/24 08:24) Rash cephalexin Allergy (Intermediate, Verified 06/06/24 08:24) Rash Medication List - Last Reconciled 06/12/24 by Samantha Epps APRN bupropion HCl 100 mg PO BID 30 days etonogestrel (Nexplanon) subdermal methylphenidate HCl ER (Concerta) 27 mg PO QAM Synthroid (levothyroxine) 137 mcg PO DAILY NS HPI- Psychiatric Chief Complaint: follow up HPI Narrative: pt here for follow up on ADHD and medication response Pt is improved; reports ADHD symptoms improved with concerta 27 mg daily no reported side effects much more organized; functioning better at home and work mood stable; no anxiety sleep and appetite intact Past Psychiatric History: PCP started her on Wellbutrin no other history psychiatric Treatment Subjective Subjective Subjective Medication Compliance: Yes Side effects from medications: No Review of Systems Medical Review of Systems: unchanged Mental Status Exam Mental Status Exam Patient Appearance: Well Grooomed and Appropriate Patient Orientation: Person, Place, Time and Situation Level of Consciousness: Awake Patient Behavior: Appropriate Mood Description: Happy Affect Description: Happy and Cheerful Patient Cognition Impaired: No Ability to Follow Directions: Good Speech Pattern: Clear and Coherent Memory Description: Intact Hallucinations: None Delusions: Not Present Thought Process: Intact and Goal Oriented Thought Content: positive for Intact and positive for Goal Oriented Judgement: Fair Assessment and Plan Assessment & Plan (1) ADHD (attention deficit hyperactivity disorder), inattentive type: Status: Acute Code(s): F90.0 - Attention-deficit hyperactivity disorder, predominantly inattentive type Medications: New methylphenidate HCl ER (Concerta) Partial Fill upon patient request. 36 mg PO QAM 30 tabs 0RF Discontinued methylphenidate HCl ER (Concerta) Partial Fill upon patient request. Discontinued Reason: Doctor's Order 27 mg PO QAM 30 tabs 0RF bupropion HCl Discontinued Reason: No Longer Medically Relevant 100 mg PO BID 30 days 60 tabs 1RF Counseling and coordination of Care Pt. Self Management counseling: Maintenance-social rhythm, Mod caffeine/ETOH intake, Nutrition education and improvement, Sleep hygiene, General coping skills and Problem solving Medication management counseling: Effectiveness, Side effects, Dosing range, Duration, Drug interaction and Adherence Diagnosis and Prognosis Counseling: Accuracy of diagnosis, Prognosis over time, Impact of diagnosis on life functions, Impact of family relationship, Problematic behaviors secondary to diagnosis and Adequacy of current interventions Details: I spent 40 minutes reviewing the record, seeing the patient and documenting in the medical record. Counseling provided to the patient/caregiver as outlined below. Addressed patient/caregiver concerns regarding current medication regime including effective adherence. Addressed patient/caregiver concerns regarding diagnosis and prognosis including accuracy of diagnosis, prognosis over time, impact of diagnosis. Addressed patient/caregiver concerns regarding impact of recent stressors. 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 She grew up in [place] [facility] [place] live with her mother and father she has 2 half-siblings who are significantly older a brother age 42 and a sister age 40. Patient moved to [place] to attend [employer] Substance History: None Trauma History: None Coding Level of Care Code Est Pt Level 4 (73424) Diagnoses ADHD (attention deficit hyperactivity disorder), inattentive type F90.0
== END 2024-06-12 09:54 | disposition home or self-care (01) ==
LOC: HO.HOP 09:32
PROVIDERS: PCP Family Medicine; Visit Provider Clinical Nurse Specialist Psychiatric/Mental Health
DX: F90.0 Attention-deficit hyperactivity disorder, predominantly inattentive type (principal)
CPT/HCPCS: 99214

== ENCOUNTER → 2024-06-12 09:32 | Outpatient (BNVA) | payer BC, SELFPAY | PROVIDERS: PCP Family Medicine; Visit Provider Clinical Nurse Specialist Psychiatric/Mental Health ==

== ENCOUNTER 2024-07-10 15:57 | Outpatient (AMB) | payer BC, SELFPAY ==
--- NOTE | 2024-07-10 15:34 | A.OFFPSYCH_ITS ---
Intake Intake Visit Reasons: f/u consultation Timing Inspector Required: No Allergies amoxicillin Allergy (Severe, Verified 06/06/24 08:24) Rash cephalexin Allergy (Intermediate, Verified 06/06/24 08:24) Rash Medication List - Last Reconciled 07/10/24 by Samantha Epps APRN etonogestrel (Nexplanon) subdermal methylphenidate HCl ER (Concerta) 36 mg PO QAM Synthroid (levothyroxine) 137 mcg PO DAILY NS HPI- Psychiatric Chief Complaint: f/u consultation HPI Narrative: Seen via teleheath visit for ADHD follow up Pt much improved. Pt doing very well with Concerta 36 mg every morning much more organized and on task able to focus, plan and complete tasks more easily no side effects notes pt sleep and appetite intact increased self confidence and lower level of stress mood good, happy, upbeat anxiety much less. no SI or HI Past Psychiatric History: PCP started her on Wellbutrin no other history psychiatric Treatment Subjective Subjective Subjective Medication Compliance: Yes Side effects from medications: No Review of Systems Medical Review of Systems: unchanged Mental Status Exam Mental Status Exam Patient Appearance: Well Grooomed and Appropriate Patient Orientation: Person, Place, Time and Situation Level of Consciousness: Awake, Appropriate and Alert Patient Behavior: Appropriate and Cooperative Mood Description: Happy and Cheerful Affect Description: Happy and Cheerful Patient Cognition Impaired: No Ability to Follow Directions: Good Speech Pattern: Clear and Appropriate Memory Description: Intact Hallucinations: None Delusions: Not Present Thought Process: Intact and Goal Oriented Thought Content: positive for Intact and positive for Goal Oriented Judgement: Good Telehealth Telehealth Telehealth Platform: Other (please specify) (TEEspypr) Location of provider rendering services: practice address Location of patient: other (workplace in the [facility] [employer]) Patient Identification confirmed using: Name, : Yes Telehealth method: video Patient verbally consented to treatment: Yes Patient verbally consented to billing insurance company: Yes Patient informed of any privacy concerns related to visit: Yes Minutes spent on Phone/Video with Pt.: 30 Assessment and Plan Assessment & Plan (1) ADHD (attention deficit hyperactivity disorder), inattentive type: Status: Acute Code(s): F90.0 - Attention-deficit hyperactivity disorder, predominantly inattentive type Plan continue concerta 36 mg one in am daily follow up with PCP may be re- referred status changes Medications: Refilled methylphenidate HCl ER (Concerta) Partial Fill upon patient request. 36 mg PO QAM 60 tabs 0RF ADHD F90.0 - Attention-deficit hyperactivity disorder, predominantly inattentive type Counseling and coordination of Care Pt. Self Management counseling: Maintenance-social rhythm, Mod caffeine/ETOH intake, Nutrition education and improvement and Sleep hygiene Medication management counseling: Effectiveness, Side effects, Dosing range, Duration, Drug interaction and Adherence Diagnosis and Prognosis Counseling: Accuracy of diagnosis, Prognosis over time, Impact of diagnosis on life functions, Impact of family relationship, Problematic behaviors secondary to diagnosis and Adequacy of current interventions Details: I spent [] minutes reviewing the record, seeing the patient and documenting in the medical record. Counseling provided to the patient/caregiver as outlined below. Addressed patient/caregiver concerns regarding current medication regime including effective adherence. Addressed patient/caregiver concerns regarding diagnosis and prognosis including accuracy of diagnosis, prognosis over time, impact of diagnosis. Addressed patient/caregiver concerns regarding impact of recent stressors. [facility] Medical History Shingles Hypothyroid Surgical History No history of previous surgery Family History Father Hypertension Mother Hypertension Irregular heart beat Paternal Grandmother Lung cancer Stroke Paternal Grandfather Cancer Paternal Uncle Heart attack Social History Household Members: Significant Other Household Members Other:: fiance Housing: House Alcohol intake: current Alcohol intake frequency: other Patient Tobacco Use Status: Never used Tobacco e-Cigarette/Vaping Use: Never Used Second Hand Smoke Exposure: No service: No Current occupational status: employed 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 She grew up in [place] live with her mother and father she has 2 half-siblings who are significantly older a brother age 42 and a sister age 40. Patient moved to [place] to attend [employer] Substance History: None Trauma History: None Coding Level of Care Code Tele Est Pt Level 4 (96108) Diagnoses ADHD (attention deficit hyperactivity disorder), inattentive type F90.0
--- OUTSIDE RECORDS SUMMARY | 2024-07-10 16:43 | XMS_ITS | Continuity of Care Document ---
Author Organization [facility] Address [address] [place] [id number] Social History Not on File Plan of Treatment Not on file
== END 2024-07-10 15:57 | disposition home or self-care (01) ==
LOC: HO.HOP 15:57
PROVIDERS: PCP Family Medicine; Visit Provider Clinical Nurse Specialist Psychiatric/Mental Health
DX: F90.0 Attention-deficit hyperactivity disorder, predominantly inattentive type (principal)
CPT/HCPCS: 99214

== ENCOUNTER → 2024-07-10 15:57 | Outpatient (BNVA) | payer BC, SELFPAY | PROVIDERS: PCP Family Medicine; Visit Provider Clinical Nurse Specialist Psychiatric/Mental Health | DX: F90.0 Attention-deficit hyperactivity disorder, predominantly inattentive type (principal) ==

== ENCOUNTER 2024-08-31 14:42 | Outpatient (AMB) | payer BC, SELFPAY ==
--- NOTE | 2024-08-31 14:46 | A.OFFPC_ITS ---
Vital Signs 08/31/24 14:51 Height 5 ft 4 in Weight 197 lb 4 oz BMI 33.9 BP 102/67 Blood Pressure Location Lt brachial Position Sitting Respiration 12 Pulse 89 Pulse Source Pulse Oximeter Temp 96.9 F Temp Source Oral Pulse Oximetry (%) 99 Oxygen Delivery Method Room Air Intake Visit Reasons: cpe ([facility]) Intake Note: CPE Dolly Driver Required: No Allergies amoxicillin Allergy (Severe, Verified 08/31/24 14:47) Rash cephalexin Allergy (Intermediate, Verified 08/31/24 14:47) Rash Medication List - Last Reconciled 08/31/24 by Alexandra Barahona, MILVIA-BC etonogestrel (Nexplanon) subdermal methylphenidate HCl ER (Concerta) 36 mg PO QAM Synthroid (levothyroxine) 137 mcg PO DAILY NS Tobacco use date assessed: 08/31/24 Dental Screening Dental Screen Date: 08/31/24 Did you have a dental visit in the last 12 months?: Yes Did you have a dental problem in the last 6 months where you did not have access to dental care?: No Was dental information given to patient?: Patient has dentist HPI HPI Comments History of Present Illness Details 29 Y/O F with hypothyroid, ADHD, obesity Surgery: None Family hx: No changes Health Maintenance: TDAP admin today PAP 2023 Specialists endo annual visits rn obgyn Optho wears contacts Annual exams History of Present Illness - The patient is a 29-year-old female pr esenting for a complete physical examination. - Hypothyroidism managed with Synthroid 137 mcg daily, stable thyroid levels per May lab results. - ADHD diagnosed in April, managed with Concerta 36 mg daily. - Obesity, BMI 33.9. 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 - Active lifestyle due to profession and coaching responsibilities. Health Maintenance - Discussed the need for a tetanus boost er today. - Updated Pap smears; next one scheduled in 2023. - Annual endocrinology follow-up for thy roid condition. Review of Systems - General: Reports feeling well overall. - Eyes: Reports wearing contacts due to vision impairment. - Psychiatric: Denies anxiety and depres dang. - Dermatological: Denies skin concerns. - Musculoskeletal: Denies pain or tender ness. - Genitourinary: Denies issues with urin ation or bowel movements. Physical Exam General: Well developed, well nourished, in no acute distress. Appears stated age. Head: Normocephalic, atraumatic. Eyes: Pupils are equal, round and reactive to light and accommodation. Conjunctivae are clear. Vision grossly normal. Ears: TMs clear AU, EACS WNL Nose: Patent, without discharge. Neck: Supple, no adenopathy or thyromegaly. Breast: Edu on SBE. Patient performs self breast exams regularly. Lungs: Clear to auscultation bilaterally. No rales, rhonchi or wheeze noted. Good air flow in all lerma. Heart: Regular rate and rhythm. No murmurs, click, rubs or gallops are noted. Abdomen: Bowel sounds present in all quadrants. The abdomen is soft, nontender, with no masses or organomegaly noted. No hernias are noted. : Deferred. Reviewed recommendations for routine [employer] CHANGE. Pulses: Peripheral pulses are equal and palpable bilaterally. Extremities: No clubbing, cyanosis nor edema is noted. No swelling in ankles. Neurologic: Gait and station normal. Cranial Nerves 2-12 intact. Motor strength grossly symmetrical and intact. No sensory loss. Balance normal. Skin: No rashes, ulcers, or lesions noted. Turgor is good. Skin color is good. Hair and nails are without abnormalities. Psych: Normal eye contact, affect and mood appropriate, and normal interactions. Patient is alert and appropriate to context. Results - Labs: Thyroid labs reviewed in May; results stable. Discussion Notes I reviewed with the patient the management plan for her hypothyroidism, ADHD, and obesity. The conversation included her stabilized thyroid results from May and that continued monitoring will be conducted by primary care unless complications arise. We also discussed her ADHD medications, specifically addressing how refills should be managed through the patient portal due to the pharmacy's supply regulations. I advised a 90-day prescription plan, advising her to notify us through the portal when custodial through her current supply for a smooth refill process. The patient expressed understanding and agreement. 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 Additionally, validated the need for administering her tetanus booster today. Assessment and Plan 1. Hypothyroidism - Continue Synthroid 137 mcg daily. - Schedule annual endocrinology follow-u p. 2. ADHD - Maintain Concerta 36 mg. - Schedule 6-month evaluation. 3. Obesity - Ongoing activity encouraged. 4. Preventive Care - Administer tetanus booster. Patient Instructions - Continue Synthroid and Concerta as pre scribed. - Use the patient portal to request ADHD medication refills ahead of time. - Participate actively in physical educa tion and coaching sessions. - Return in 6 months for an ADHD medicat ion check. - Contact the clinic if experiencing any adverse reactions related to allergies. - Get tetanus shot today. Consent Patient was informed and verbally consented to the use of an ambient scribe for clinic note documentation during this visit. [facility] Medical History Shingles Hypothyroid Surgical History No history of previous surgery Family History Father Hypertension Mother Hypertension Irregular heart beat Paternal Grandmother Lung cancer Stroke Paternal Grandfather Cancer Paternal Uncle Heart attack Social History Household Members: Significant Other Household Members Other:: fiance Housing: House Alcohol intake: current Alcohol intake frequency: other Patient Tobacco Use Status: Never used Tobacco e-Cigarette/Vaping Use: Never Used Second Hand Smoke Exposure: No service: No Current occupational status: employed 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 1. Little interest or pleasure in doing things: not at all 2. Feeling down, depressed, or hopeless: not at all 3. Trouble falling or staying asleep, or sleeping too much: not at all 4. Feeling tired or having little energy: not at all 5. Poor appetite or overeating: not at all 6. Feeling bad about yourself - or that you are a failure or have let yourself or your family down: not at all 7. Trouble concentrating on things, such as reading the newspaper or watching television: not at all 8. Moving or speaking so slowly that other people could have noticed. Or the opposite - being so fidgety or restless that you have been moving around a lot more than usual: not at all 9. Thoughts that you would be better off or of hurting yourself in some way: not at all Total score: 0 Depression Screening Interpretation: Negative Depression Screening Done: Yes 15735 - PHQ-9 Billing: Yes Source: Developed by Drs. Sohail Alejandro, Arlet Larkin, Aakash Nunes and colleagues, with an educational lolita from [employer]. Thrive Questionnaire Date Thrive assessed: 08/31/24 I am a: Patient What is your living situation today?: I have a steady place to live Within the past 12 months, did the food you bought not last and you didn't have the money to get more?: Never true Within the past 12 months, did you worry whether your food would run out before you got money to buy more?: Never true Do you have trouble paying for medicines?: No Do you have trouble getting transportation to medical appointments?: No Do you have trouble paying your heating and electricity bill?: No Do you have trouble taking care of your child, family member or friend?: No Do you have trouble with day-to-day activities such as bathing, preparing meals, shopping, managing finances, etc.?: No Are you currently unemployed and looking for a job?: No Are you interested in more education?: No Please select the resources that you would like help with: None Currently or been in a relationship where the following occur: No concerns reported THRIVE Score: 0 AUDIT C Alcohol Use Questionnaire (AUDIT-C) 1. How often do you have a drink containing alcohol?: Never 3. How often do you have six or more drinks on one occasion?: Never Total Score: 0 Score Reviewed/Action Taken: Yes JOSE-7 AMB Questionnaire JOSE-7 Date JOSE - 7 assessed: 08/31/24 Feeling nervous, anxious, or on edge: 0 = Not at all Not being able to stop or control worryin = Not at all Worrying too much about different things: 0 = Not at all Trouble relaxin = Not at all Being so restless that it is hard to sit still: 0 = Not at all Becoming easily annoyed or irritable: 0 = Not at all Feeling afraid as if something awful might happen: 0 = Not at all Total JOSE-7 score (0-4 normal; 5-9 mild; 10-14 moderate; 15-21 severe): 0 Source: Developed by Drs. Sohail Alejandro, Arlet Larkin, Aakash Nunes and colleagues, with an educational lolita from [employer]. JOSE-7 Assessment Billing JOSE-7 Assessment Tool: JOSE-7 Assessment 70455 Physical exam (Primary Care) Vital Signs: Last Vital Signs Temp 96.9 F 08/31/24 14:51 Pulse 89 08/31/24 14:51 Resp 12 08/31/24 14:51 BP 102/67 08/31/24 14:51 Pulse Ox 99 08/31/24 14:51 Oxygen Delivery Method Room Air 08/31/24 14:51 BMI result Body Mass Index 33.9 BMI Assessment/Plan discussion: High BMI High, discussed plan: lifestyle Tobacco/Smoking Status: Tobacco use Status Tobacco use date assessed 08/31/24 08/31/24 14:51 Patient Tobacco Use Status Never used Tobacco 08/31/24 14:51 e-Cigarette/Vaping Use Never Used 08/31/24 14:51 PHQ-9: PHQ-9 Score PHQ-9: Total score 0 08/31/24 15:01 Depression Screening Interpretation: Negative Thrive Assessment: Date of Thrive Assessment Date Thrive assessed 08/31/24 08/31/24 14:51 Currently or been in a relationship where the following occur: No concerns reported Immunizations Boostrix Tdap 2.5 Lf unit-8 mcg-5 Lf/0.5 mL intramuscular syringe Performing Provider: JENN Pugh [place]forming Location: [facility] [place] [facility] [place] [facility] Administered by: Holly Perez MA on 08/31/24 15:22 Dose Route Admin Location Dispensed Lot Number Expiration Date [facility] Building Code Inspector 0.5 mL IM Left Deltoid 0.5 mL [id number] 12/11/26 23527-879-84 [employer] Total Dispensed Waste 0.5 mL 0 % VIS Given Date VIS Provided VIS Publication Date 08/31/24 Single Vaccine 20 Eligibility Eligibility Date Funding Source Not VFC Eligible 08/31/24 Private Coding Level of Care Code Est Pt Prev Care 18-39y(60554) Diagnoses Normal physical examination, routine Z00.00 ADHD (attention deficit hyperactivity disorder), inattentive type F90.0 Acquired hypothyroidism E03.9 Hypothyroidism type: acquired Obesity (BMI 30-39.9) E66.9 Need for Tdap vaccination Z23 Additional Codes JOSE-7 Assessment Billing - JOSE-7 Assessment Tool: JOSE-7 Assessment 11635 ([id number]) PHQ-9 - 13631 - PHQ-9 Billing: Yes ([id number]) Assessment & Plan Assessment & Plan (1) Normal physical examination, routine: Onset Date: ~08/31/24 Code(s): Z00.00 - Encounter for general adult medical examination without abnormal findings Category: Medical (2) ADHD (attention deficit hyperactivity disorder), inattentive type: Code(s): F90.0 - Attention-deficit hyperactivity disorder, predominantly inattentive type Category: Medical (3) Hypothyroidism: Code(s): E03.9 - Hypothyroidism, unspecified Category: Medical Qualifiers: Hypothyroidism type: acquired Qualified Code(s): E03.9 - Hypothyroidism, unspecified (4) Obesity (BMI 30-39.9): Code(s): E66.9 - Obesity, unspecified Category: Medical (5) Need for Tdap vaccination: Code(s): Z23 - Encounter for immunization Category: Medical Plan . Orders: Orders TDaP Immunization Today Z23 - Encounter for immunization Medications: Refilled Synthroid (levothyroxine) 137 mcg PO DAILY 90 tabs 1RF NS methylphenidate HCl ER (Concerta) Partial Fill upon patient request. 36 mg PO QAM 90 tabs 0RF ADHD F90.0 - Attention-deficit hyperactivity disorder, predominantly inattentive type Patient Instructions: Patient Instructions - Continue Synthroid and Concerta as prescribed. - Use the patient portal to request ADHD medication refills ahead of time. - Participate actively in physical education and coaching sessions. - Return in 6 months for an ADHD medication check. - Contact the clinic if experiencing any adverse reactions related to allergies. - Get tetanus shot today. Health screenings for women You should visit your health care provider from time to time, even if you are healthy. The purpose of these visits is to: Screen for medical issues Assess your risk for future medical problems Encourage a healthy lifestyle Update vaccinations and other preventive care services Help you get to know your provider in case of an illness Information Even if you feel fine, you should still see your provider for regular checkups. These visits can help you avoid problems in the future. For example, the only way to find out if you have high blood pressure is to have it checked regularly. High blood sugar and high cholesterol levels also may not have any symptoms in the early stages. A simple blood test can check for these conditions. There are specific times when you should see your provider or receive specific health screenings. The [place] Preventive Services Task Force publishes a list of recommended screenings. Below are screening guidelines for women ages 18 to 39. BLOOD PRESSURE SCREENING Your blood pressure should be checked at least once every 3 to 5 years if: Your blood pressure is in the normal range (top number less than 120 mm Hg and bottom number less than 80 mm Hg) You don't have risk factors for high blood pressure Ask your provider if you need your blood pressure checked more often if: The top number is 120 to 129 mm Hg or the bottom number is 70 to 79 mm Hg You have diabetes, heart disease, kidney problems, are overweight, or have certain other health conditions You have a first-degree relative with high blood pressure You are Black You had high blood pressure during a If the top number is 130 mm Hg or greater or the bottom number is 80 mm Hg or greater, this is considered stage 1 hypertension. Schedule an appointment with your provider to learn how you can reduce your blood pressure. Watch for blood pressure screenings in your area. Ask your provider if you can stop in to have your blood pressure checked. BREAST CANCER SCREENING Experts do not agree about the benefits of breast self-exams in finding breast cancer or saving lives. Talk to your provider about what is best for you. A screening mammogram is not recommended for most women under age 40. Your provider may discuss and recommend mammograms, MRI scans, or ultrasounds if you have an increased risk for breast cancer, such as: A mother or sister who had breast cancer at a young age (most often starting screening earlier than the age the close relative was diagnosed) You carry a high-risk genetic marker CERVICAL CANCER SCREENING Cervical cancer screening should start at age 21 years unless your provider advises otherwise. After the first test: Women ages 21 through 29 should have a Pap test every 3 years. Exoprts do not agree on whether HPV testing is recommended for this age group. Women ages 30 through 65 should be screened with either a Pap test every 3 years or the HPV test every 5 years or both tests every 5 years (called cotesting ). Women who have been treated for precancer (cervical dysplasia) should continue to have Pap tests for 20 years after treatment or until age 65, whichever is longer. If you have had your uterus and cervix removed (total hysterectomy), and you have not been diagnosed with cervical cancer or precancer (high grade cervical neoplasia), you do not need cervical cancer screening. CHOLESTEROL SCREENING Cholesterol screening should begin at: Age 45 for women with no known risk factors for coronary heart disease Age 20 for women with known risk factors for coronary heart disease Repeat cholesterol screening should take place: Every 5 years for women with normal cholesterol levels More often if changes occur in lifestyle (including weight gain and diet) More often if you have diabetes, heart disease, kidney problems, or certain other conditions DIABETES SCREENING You should be screened for diabetes starting at age 35 and then repeated every 3 years if you have no risk factors for diabetes. Screening may need to start earlier and be repeated more often if you have other risk factors for diabetes, such as: You have a first degree relative with diabetes. You are overweight or have obesity. You have high blood pressure, prediabetes, or a history of heart disease. Screening for diabetes should be done if you are planning to become and you are overweight and have other risk factors such as high blood pressure. DENTAL EXAM Go to the dentist once or twice every year for an exam and cleaning. Your dentist will evaluate if you need more frequent visits. EYE EXAM Have an eye exam every 5 to 10 years before age 40. If you have vision problems, have an eye exam every 2 years or more often if recommended by your provider. You should have an eye exam that includes an examination of your retina (back of your eye) at least every year if you have diabetes. IMMUNIZATIONS Commonly needed vaccines include: Flu shot: get one every year. COVID-19 vaccine: ask your provider what is best for you. Tetanus-diphtheria and acellular pertussis (Tdap) vaccine: have one at or after age 19 as one of your tetanus-diphtheria vaccines if you did not receive it as an adolescent. Tetanus-diphtheria: have a booster (or Tdap) every 10 years. Varicella vaccine: receive 2 doses if you never had chickenpox or the varicella vaccine. Hepatitis B vaccine: receive 2, 3, or 4 doses, depending on your exact circumstances. Measles, mumps, and rubella (MMR) vaccine: receive 1 to 2 doses if you are not already immune to MMR. Your provider can tell you if you are immune. Ask your provider about the human papillomavirus (HPV) vaccine if: You have not received the HPV vaccine in the past You have not completed the full vaccine series (you should catch up on this shot) Ask your provider if you should receive other immunizations if you have certain health problems that increase your risk for some diseases such as pneumonia. INFECTIOUS DISEASE SCREENING Women who are sexually active should be screened for chlamydia and gonorrhea up until age 25. Women 25 years and older should be screened for chlamydia and gonorrhea if at high risk. Screening for hepatitis C: All adults ages 18 to 79 should get a one-time test for hepatitis C. people should be screened at every . Screening for human immunodeficiency virus (HIV): All people ages 15 to 65 should get a one-time test for HIV. Depending on your lifestyle and medical history, you may also need to be screened for infections such as syphilis and HIV, as well as other infections. PHYSICAL EXAM All adults should visit their provider from time to time, even if they are healthy. The purpose of these visits is to: Screen for disease Assess your risk of future medical problems Encourage a healthy lifestyle Update your vaccinations and other preventive care services Maintain a relationship with a provider in case of an illness Your height, weight, and BMI should be checked at every exam. During your exam, your provider may ask you about: Depression and anxiety Diet and exercise Alcohol and tobacco use Safety issues, such as using seat belts, smoke detectors, and intimate partner violence Your medicines and risk for interactions SKIN SELF-EXAM Your provider may check your skin for signs of skin cancer, especially if you're at high risk, such as if you: Have had skin cancer before Have close relatives with skin cancer Have a weakened immune system OTHER SCREENING Talk with your provider about colon cancer screening if you have a strong family history of colon cancer or polyps, or if you have had inflammatory bowel disease or polyps yourself. Routine bone density screening of women under 40 is not recommended.
[2024-08-31 14:51] VITALS: BP 102/67; PULSE 89; RESP 12; TEMP 36.1; O2SAT 99; BMI 33.9
== END 2024-08-31 15:23 | disposition home or self-care (01) ==
LOC: HO.HMCFM 14:42
PROVIDERS: PCP Family Medicine; Visit Provider Nurse Practitioner Family
DX: Z00.00 Encounter for general adult medical examination without abnormal findings (principal); F90.0 Attention-deficit hyperactivity disorder, predominantly inattentive type; E66.9 Obesity, unspecified; Z68.33 Body mass index [BMI] 33.0-33.9, adult; E03.9 Hypothyroidism, unspecified; Z23 Encounter for immunization

== ENCOUNTER → 2024-08-31 14:42 | Outpatient (BNVA) | payer BC, SELFPAY | PROVIDERS: PCP Family Medicine; Visit Provider Nurse Practitioner Family | DX: Z00.00 Encounter for general adult medical examination without abnormal findings (principal); Z23 Encounter for immunization; F90.0 Attention-deficit hyperactivity disorder, predominantly inattentive type; E03.9 Hypothyroidism, unspecified; E66.9 Obesity, unspecified; Z68.33 Body mass index [BMI] 33.0-33.9, adult; Z79.899 Other long term (current) drug therapy | CPT/HCPCS: 90471; 90715; 96127 ==

== ENCOUNTER 2024-11-01 09:00 | Outpatient (REF) | payer BC, SELFPAY | END 2024-11-01 09:01 | disposition home or self-care (01) | LOC: HO.LNP 09:00 | PROVIDERS: PCP Family Medicine; Visit Provider Advanced Practice Midwife | DX: Z01.419 Encounter for gynecological examination (general) (routine) without abnormal findings (principal); Z11.51 Encounter for screening for human papillomavirus (HPV) | CPT/HCPCS: 87626; 88175 ==

== ENCOUNTER 2024-11-01 09:00 | Outpatient (AMB) | payer BC, SELFPAY ==
--- NOTE | 2024-11-01 09:02 | A.OFFVIS_ITS ---
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 wants to talk about concieving Information Interpreted: non-clinical & clinical Crosstie Inspector: Crosstie Inspector Present (Shefali) Accompanied by: Self / Same As Patient Allergies amoxicillin Allergy (Severe, Verified 08/31/24 14:47) Rash cephalexin Allergy (Intermediate, Verified 08/31/24 14:47) Rash Medication List - Last Reconciled 11/01/24 by Samantha Elkins LPN etonogestrel (Nexplanon) subdermal methylphenidate HCl ER (Concerta) 36 mg PO QAM Synthroid (levothyroxine) 137 mcg PO DAILY NS Is last menstrual period known: Yes Last menstrual period: 10/04/24 Post menopausal: No Patient : No Do you need a note to return to daycare/school/sports/work: Yes HPI Comments Details: Patient is a premenopausal woman presenting for annual examination. 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 Currently on her menses. Currently is sexually active. She denies vaginal itching or irritation. STI screening offered; she declines. She tries to eat healthy (weight watchers) and stays active with exercise. Denies family history of breast, ovarian or colon cancer. Last pap smear 2023, negative. [facility] Medical History ADHD (attention deficit hyperactivity disorder) Shingles Hypothyroid Surgical History No history of previous surgery Family History Father Hypertension Mother Hypertension Irregular heart beat Paternal Grandmother Lung cancer Stroke Paternal Grandfather Cancer Paternal Uncle Heart attack Social History Household Members: Significant Other Household Members Other:: Housing: House Alcohol intake: current Alcohol intake frequency: other Patient Tobacco Use Status: Never used Tobacco e-Cigarette/Vaping Use: Never Used Second Hand Smoke Exposure: No Patient : No service: No Current occupational status: employed 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, 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 Current occupational exposures/hazards: No Cognitive needs: No Hearing needs: No Vision needs: No Female Reproductive History Menstrual Age of Menarche: 10 Date of last menstrual period: 10/04/24 control method: implanted (Nexplanon 03/18/22) Total pregnancies: 0 Number of Living Children: 0 Date of last pap smear: 06/08/23 (neg) Review of Systems Const All systems reviewed & are unremarkable except as noted in HPI and below Reports as per HPI Eyes Reports no additional complaints ENT Reports no additional complaints Card Reports no additional complaints Resp Reports no additional complaints GI Reports as per HPI and Reports no additional complaints Reports as per HPI Musc Reports no additional complaints Skin/Breast Reports as per HPI Neuro Reports no additional complaints Psych Reports no additional complaints Endo Reports no additional complaints Aaron/Lymph Reports no additional complaints Aller/Immun Reports no additional complaints Physical Exam Vital Signs: Last Vital Signs BP 100/64 11/01/24 09:10 BMI result Body Mass Index 32.3 Const General: cooperative, healthy appearing, no acute distress, well developed and alert Orientation/consciousness: patient oriented x3 HEENT Head: Yes normal to inspection Eyes General: appearance normal, both eyes and all related structures Neck Neck: Yes normal visual inspection Thyroid: Thyroid normal Chest Chest palpation & inspection: normal inspection of the chest and other (no puckering, dimpling, peau de orange, retraction, discharge, masses) Breast/axilla inspection: normal inspection of the breasts Breast/axilla palpation: normal palpation of the breasts Resp Effort & Inspection: normal respiratory effort GI Inspection: Yes normal to inspection Palpation (GI): Soft to palpation Rectal Exam - Female: deferred General: Yes bladder normal to palpation External Female Exam: normal external appearance and normal appearance of the urethra Speculum Exam - Vagina: normal appearance of the vagina, normal palpation, normal vaginal discharge and vaginal bleeding Speculum Exam - Cervix: normal appearance of the cervix and normal palpation Bimanual exam- vagina & uterus: normal bimanual exam, normal palpation, uterine size normal, bladder normal to palpation, normal palpation and non-tender Bimanual Exam- Adnexa, other: no masses OB/external & speculum: vaginal bleeding Skin General skin exam: no rashes or lesions noted Rashes: no rashes Neuro General: patient oriented x3 Cognition (Neuro): normal cognition Extrem General: Yes normal to inspection Psych Attitude: cooperative Thought process: Normal thought process present Assessment & Plan Assessment & Plan (1) Encounter for well woman exam with routine gynecological exam: Code(s): Z01.419 - Encounter for gynecological examination (general) (routine) without abnormal findings Category: Medical Plan Discussed: Current recommendations for pap smears per ASCCP guidelines. Pap obtained await results for final plan of care. Breast awareness and periodic breast exams. Maintain a healthy lifestyle including a well balanced diet and routine exercise. Initiate vitamins prior to Nexplanon removal. Prescription sent to pharmacy. Schedule Nexplanon removal appointment. Informed care would be at another facility due to the closure of the [facility]thing [facility]. Patient verbalizes understanding and agrees to the plan of care. She was given opportunity to ask questions and all questions were answered to the best of my ability. RTO in one year for annual title camera operator examination. This note is constructed using voice recognition software. While every effort has been made to ensure accuracy, electric motor winder errors may have been included. Orders: Orders HPV High risk Today Z01.419 - Encounter for gynecological examination (general) (routine) without abnormal findings Pap Smear Today Z01.419 - Encounter for gynecological examination (general) (routine) without abnormal findings Medications: New PNV,calcium 55-wbwt-smlbn acid 27 mg iron- 1 mg ( Vitamins Plus Low Iron) 1 tab PO DAILY 90 tabs 4RF Coding Level of Care Code Est Pt Prev Care 18-39y(02158) Diagnoses Encounter for well woman exam with routine gynecological exam Z01.419
[2024-11-01 09:10] VITALS: BP 100/64; BMI 32.3
== END 2024-11-01 09:56 | disposition home or self-care (01) ==
LOC: HO.HWS 09:00
PROVIDERS: PCP Family Medicine; Visit Provider Advanced Practice Midwife
DX: Z01.419 Encounter for gynecological examination (general) (routine) without abnormal findings (principal)
CPT/HCPCS: 99395; 99459

== ENCOUNTER 2024-11-06 07:52 | Outpatient (AMB) | payer BC, SELFPAY ==
[2024-11-06 07:56] VITALS: BP 114/74
--- NOTE | 2024-11-06 07:56 | MHC.OFFVIS ---
Vital Signs 11/06/24 07:56 Height 5 ft 4 in BP 114/74 Intake Visit Reasons: Nexplanon removal ok per Katerina Home Mortgage Disclosure Act Specialist Required: No Head Girls Golf Coach: Head Girls Golf Coach Present Allergies amoxicillin Allergy (Severe, Verified 11/06/24 07:57) Rash cephalexin Allergy (Intermediate, Verified 11/06/24 07:57) Rash Medication List - Last Reconciled 11/06/24 by Karis Ross LPN methylphenidate HCl ER (Concerta) 36 mg PO QAM PNV,calcium 79-eitp-zmpys acid 27 mg iron- 1 mg ( Vitamins Plus Low Iron) 1 tab PO DAILY Synthroid (levothyroxine) 137 mcg PO DAILY NS Is last menstrual period known: Yes Last menstrual period: 11/01/24 Post menopausal: No Patient : No Do you need a note to return to daycare/school/sports/work: No HPI Comments Details: Patient is here today for a Nexplanon removal, due to planning a future . [facility] Medical History ADHD (attention deficit hyperactivity disorder) Shingles Hypothyroid Surgical History No history of previous surgery Family History Father Hypertension Mother Hypertension Irregular heart beat Paternal Grandmother Lung cancer Stroke Paternal Grandfather Cancer Paternal Uncle Heart attack Social History Household Members: Significant Other Household Members Other:: Housing: House Alcohol intake: current Alcohol intake frequency: other Patient Tobacco Use Status: Never used Tobacco e-Cigarette/Vaping Use: Never Used Second Hand Smoke Exposure: No Patient : No service: No Current occupational status: employed 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, 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 Current occupational exposures/hazards: No Cognitive needs: No Hearing needs: No Vision needs: No Female Reproductive History Menstrual Age of Menarche: 10 Duration of menses: 6-7 days Date of last menstrual period: 11/01/24 control method: implanted Total pregnancies: 0 Date of last pap smear: 11/01/24 History of STI: No Review of Systems Const All systems reviewed & are unremarkable except as noted in HPI and below Endo Reports no additional complaints Physical Exam Vital Signs: Last Vital Signs BP 114/74 11/06/24 07:56 Const General: cooperative, healthy appearing and no acute distress Extrem Other: Inner upper arm implant intact, superficially palpable, nontender Psych Appearance: well kempt Attitude: cooperative Thought process: Normal thought process present Office Procedures Contraception Insert/Removal Details Details: Nexplanon Removal Procedure Nexplanon Removal Counseling: The patient was counseled regarding Nexplanon removal procedure risks for: pain, infection bleeding, bruising , swelling scarring, injury to nerves, blood vessels, and surrounding tissue. ?All questions were answered. ?The patient has signed the consent form and desires to proceed with the procedure. Nexplanon Removal Procedure: The patient was placed in a supine position with her non dominant left hand resting under her head. The insertion site was located: 8-10cm from the medial epicondyle notch of the humerus, posterior to the sulcus, between the triceps and biceps muscle. The area of the ?implant was identified and the distal tip located. This area was cleansed with an alcohol prep and 1 ml of 1% Lidocaine on a 25 gauge needle and syringe was utilized for adequate anesthesia to the insertion site. After ascertaining adequate anesthesia, the area was prepped with Betadine solution. The skin over the distal tip was incised with a #11 blade scalpel and the capsule was located and entered freeing the implant from the canal. The implant was removed with a gentle tug using a mosquito clamp and removed intact. Direct pressure was applied to the insertion site for hemostasis, minimal bleeding was observed. Steri strips, Tegaderm covering, gauze pads, and Astrid wrap dressing were secured with paper tape. Nexplanon Removal Post Care Instructions: You may expect mild tenderness, swelling, and bruising from the area. If no allergies, you may use a mild over the counter analgesic like Tylenol or Advil (follow the manufacturers recommendations on dosing and frequency of use). Call the office if any symptoms and including: fever (over 100.4), flu like symptoms, signs of infection-redness, pus drainage, pain (beyond usual healing). Keep the pressure dressing on and clean and dry for 24 hours, then remove it. You may take the steri strips and Tegaderm off in 5-7 days, or sooner if peeling off on its own. The patient tolerated the procedure well and left the office in good condition. This note is constructed using voice recognition software. ?While every effort has been made to ensure accuracy, fundraising consultant errors may have been included. ? [id number] - Removal Assessment & Plan Assessment & Plan (1) Nexplanon removal: Code(s): Z30.46 - Encounter for surveillance of implantable subdermal contraceptive Plan See procedure notes. Monitor menses report for care with positive test. Use of a menstrual cycle lap. Continue healthy diet, exercise and lifestyle habits. Continue with vitamins. The patient expressed understanding and agreement with the plan of care. All of her questions and concerns were addressed to the best of my ability. This note is constructed using voice recognition software. While every effort has been made to ensure accuracy, fundraising consultant errors may have been included. Coding Level of Care Code Procedure Only Diagnoses Nexplanon removal Z30.46 CPT Codes Details - Contraception: 13974 - Removal ([id number])
== END 2024-11-06 08:33 | disposition home or self-care (01) ==
LOC: HO.HWS 07:52
PROVIDERS: PCP Family Medicine; Visit Provider Advanced Practice Midwife
DX: Z30.46 Encounter for surveillance of implantable subdermal contraceptive (principal)
CPT/HCPCS: 11982

== ENCOUNTER → 2024-11-06 07:52 | Outpatient (BNVA) | payer BC, SELFPAY | PROVIDERS: PCP Family Medicine; Visit Provider Advanced Practice Midwife | DX: Z30.46 Encounter for surveillance of implantable subdermal contraceptive (principal) | CPT/HCPCS: 11982 ==

== ENCOUNTER 2024-12-27 15:47 | Outpatient (AMB) | payer BC, SELFPAY ==
--- NOTE | 2024-12-27 16:31 | MHC.OFFVISPS ---
Intake Intake Visit Reasons: depression Educational Paraprofessional Required: No Allergies amoxicillin Allergy (Severe, Verified 11/06/24 07:57) Rash cephalexin Allergy (Intermediate, Verified 11/06/24 07:57) Rash Medication List - Last Reconciled 12/27/24 by Samantha Epps APRN methylphenidate HCl ER (Concerta) 36 mg PO QAM PNV,calcium 34-nalt-yjjta acid 27 mg iron- 1 mg ( Vitamins Plus Low Iron) 1 tab PO DAILY Synthroid (levothyroxine) 137 mcg PO DAILY NS HPI- Psychiatric Chief Complaint: depression HPI Narrative: Seen for ADHD follow up. Pt preparing to try to get . She is currently using control method and will start trying in January. She and I discussed the pros and cons of continuing with the Concerta vs stopping it during Pt much improved. Pt doing very well with Concerta 36 mg every morning much more organized and on task able to focus, plan and complete tasks more easily no side effects notes pt sleep and appetite intact increased self confidence and lower level of stress mood good, happy, upbeat anxiety much less. no SI or HI Past Psychiatric History: PCP started her on Wellbutrin no other history psychiatric Treatment Subjective Subjective Medication Compliance: Yes Side effects from medications: No Review of Systems Medical Review of Systems: unchanged Mental Status Exam Mental Status Exam Patient Appearance: Well Grooomed and Appropriate Patient Orientation: Person, Place, Time and Situation Level of Consciousness: Awake, Appropriate and Alert Patient Behavior: Appropriate and Cooperative Mood Description: Happy and Cheerful Affect Description: Happy and Cheerful Patient Cognition Impaired: No Ability to Follow Directions: Good Speech Pattern: Clear and Appropriate Memory Description: Intact Hallucinations: None Delusions: Not Present Thought Process: Intact and Goal Oriented Thought Content: positive for Intact and positive for Goal Oriented Judgement: Good Assessment and Plan Assessment & Plan (1) ADHD (attention deficit hyperactivity disorder), inattentive type: Status: Acute Code(s): F90.0 - Attention-deficit hyperactivity disorder, predominantly inattentive type Plan discussed pros and cons of taking concerta during pregnanac including risks of preamture , slow growth, low weight and possible short term withdrawal if bay born while mother still on concerta daily. some conflicting data shows possible malformation of heart while on concerta/stimulants. Research shows low risk of congenital malformations with concerta vs an unexposed continue concerta 36 mg one in am daily for now advise stopping concerta/ritalin if positive test follow up with PCP may be re- referred status changes Counseling and coordination of Care Pt. Self Management counseling: Maintenance-social rhythm, Mod caffeine/ETOH intake, Nutrition education and improvement and Sleep hygiene Medication management counseling: Effectiveness, Side effects, Dosing range, Duration, Drug interaction and Adherence Diagnosis and Prognosis Counseling: Accuracy of diagnosis, Prognosis over time, Impact of diagnosis on life functions, Impact of family relationship, Problematic behaviors secondary to diagnosis and Adequacy of current interventions Details: I spent 40 minutes reviewing the record, seeing the patient and documenting in the medical record. Counseling provided to the patient/caregiver as outlined below. Addressed patient/caregiver concerns regarding current medication regime including effective adherence. Addressed patient/caregiver concerns regarding diagnosis and prognosis including accuracy of diagnosis, prognosis over time, impact of diagnosis. Addressed patient/caregiver concerns regarding impact of recent stressors. [facility] Medical History ADHD (attention deficit hyperactivity disorder) Shingles Hypothyroid Surgical History No history of previous surgery Family History Father Hypertension Mother Hypertension Irregular heart beat Paternal Grandmother Lung cancer Stroke Paternal Grandfather Cancer Paternal Uncle Heart attack Social History Household Members: Significant Other Household Members Other:: Housing: House Alcohol intake: current Alcohol intake frequency: other Patient Tobacco Use Status: Never used Tobacco e-Cigarette/Vaping Use: Never Used Second Hand Smoke Exposure: No service: No Current occupational status: employed 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 She grew up in [place] live with her mother and father she has 2 half-siblings who are significantly older a brother age 42 and a sister age 40. Patient moved to [place] to attend [employer] Substance History: None Trauma History: None Coding Level of Care Code Est Pt Level 4 (49385) Diagnoses ADHD (attention deficit hyperactivity disorder), inattentive type F90.0
== END 2024-12-27 16:58 | disposition home or self-care (01) ==
LOC: HO.HOP 15:47
PROVIDERS: PCP Family Medicine; Visit Provider Clinical Nurse Specialist Psychiatric/Mental Health
DX: F90.0 Attention-deficit hyperactivity disorder, predominantly inattentive type (principal)
CPT/HCPCS: 99214